=== PATIENT | female | born 1975 | race American Indian/Alaskan Native ===

== ENCOUNTER 2018-07-02 04:30 | Inpatient (IN) | payer MEDICARE ==
[2018-07-02] MEDS ORDERED: APRESOLINE IV ONE ×2 (05:06→06:13)
[2018-07-02] MEDS ORDERED: ZOFRAN IV ONE ×2 (05:07→06:12)
[2018-07-02 06:03] LABS: Hematocrit 29.5 % (30.3-42.9); Mean Corpuscular HGB Conc 34 % (30-34); Mean Corpuscular Hemoglobin 33 pg (28-32); Mean Corpuscular Volume 97 fl (79-97); Platelet Count 131 K/mm3 (140-440); Red Blood Count 3.03 M/mm3 (3.65-5.03)
[2018-07-02 06:12] LABS: Red Cell Distribution Width 21.9 % (13.2-15.2)
[2018-07-02] MEDS ORDERED: MORPHINE IV ONE (06:12)
--- NOTE | 2018-07-02 06:17 | Emergency Department Report ---
ED Abdominal Pain HPI - General Chief Complaint: High BP Stated Complaint: ABDOMINAL PAIN Time Seen by Provider: 07/02/18 06:09 Source: EMS Mode of arrival: Stretcher Limitations: No Limitations - History of Present Illness Initial Comments: Patient is 43 years old female history of hypertension and end stage renal disease on hemodialysis. Patient stated that he followed by Dr. Barajas at [facility]. Patient stated that she had dialysis yesterday and see finished dialysis session. Patient presented to the ER complaining of abdominal pain and diffuse in nature started yesterday associated with nausea and vomiting. Patient denied any fever or diarrhea. In triage patient was found to have a blood pressure of 256/144. MD Complaint: abdominal pain -: Last night Location: diffuse Radiation: none Migration to: no migration Quality: cramping Consistency: constant Worsens With: nothing - Related Data Previous Rx's Medication Instructions Recorded Last Taken Type Losartan [Cozaar] 100 mg PO QDAY #30 tablet 04/17/18 Unknown Rx Metoprolol [Lopressor TAB] 50 mg PO BID #60 tablet 04/17/18 Unknown Rx Midodrine [Proamatine] 5 mg PO SHARON PRN tablet 04/17/18 Unknown Rx NIFEdipine XL [Procardia Xl] 30 mg PO DAILY #30 tablet 04/17/18 Unknown Rx hydrALAZINE [Apresoline TAB] 50 mg PO Q8HR #90 tablet 04/17/18 Unknown Rx levETIRAcetam [Keppra TAB] 500 mg PO BID #60 tablet 04/17/18 Unknown Rx medroxyPROGESTERone ACETATE 10 mg PO QDAY #14 tablet 04/17/18 Unknown Rx [Provera] oxyCODONE /ACETAMINOPHEN [Percocet 1 tab PO Q6H PRN #10 tablet 04/17/18 Unknown Rx 5/325 mg] Allergies Allergy/AdvReac Type Severity Reaction Status Date / Time No Known Allergies Allergy Unverified 04/13/18 17:57 ED Review of Systems ROS: Stated complaint: ABDOMINAL PAIN Other details as noted in HPI Comment: All other systems reviewed and negative Constitutional: denies: chills, fever Respiratory: denies: cough, orthopnea, shortness of breath, SOB with exertion, wheezing Cardiovascular: denies: chest pain, palpitations, dyspnea on exertion Endocrine: denies: excessive sweating, flushing Gastrointestinal: abdominal pain, nausea, vomiting. denies: diarrhea, constipation, hematemesis, hematochezia Musculoskeletal: denies: back pain Neurological: denies: headache, weakness, numbness, paresthesias, confusion, abnormal gait ED Past Medical Hx - Past Medical History Previous Medical History?: Yes Hx Hypertension: Yes Hx Congestive Heart Failure: No Hx Diabetes: No Hx Renal Disease: Yes (ESRD/dialysis; MWF) Hx Sickle Cell Disease: No Hx Seizures: Yes Hx Asthma: No Hx COPD: No Hx Tuberculosis: No Hx Dementia: No Hx HIV: Yes (unknown last CD4 count) - Surgical History Past Surgical History?: Yes Additional Surgical History: Perma-Cath right chest - Social History Smoking Status: Unknown if ever smoked Substance Use Type: None - Medications Home Medications: Home Medications Medication Instructions Recorded Confirmed Last Taken Type Losartan [Cozaar] 100 mg PO QDAY #30 tablet 04/17/18 05/06/18 Unknown Rx Metoprolol [Lopressor TAB] 50 mg PO BID #60 tablet 04/17/18 05/06/18 Unknown Rx Midodrine [Proamatine] 5 mg PO SHARON PRN tablet 04/17/18 05/06/18 Unknown Rx NIFEdipine XL [Procardia Xl] 30 mg PO DAILY #30 tablet 04/17/18 05/06/18 Unknown Rx hydrALAZINE [Apresoline TAB] 50 mg PO Q8HR #90 tablet 04/17/18 05/06/18 Unknown Rx levETIRAcetam [Keppra TAB] 500 mg PO BID #60 tablet 04/17/18 05/06/18 Unknown Rx medroxyPROGESTERone ACETATE 10 mg PO QDAY #14 tablet 04/17/18 05/06/18 Unknown Rx [Provera] oxyCODONE /ACETAMINOPHEN [Percocet 1 tab PO Q6H PRN #10 tablet 04/17/18 Unknown Rx 5/325 mg] ED Physical Exam - General Limitations: No Limitations General appearance: alert, in distress - Head Head exam: Present: atraumatic, normocephalic, normal inspection - Eye Eye exam: Present: normal appearance, PERRL - ENT ENT exam: Present: normal exam, normal orophraynx, mucous membranes moist - Neck Neck exam: Present: normal inspection, full ROM. Absent: tenderness, meningismus, lymphadenopathy, thyromegaly - Respiratory Respiratory exam: Present: normal lung sounds bilaterally - Cardiovascular Cardiovascular Exam: Present: regular rate, normal rhythm, normal heart sounds - GI/Abdominal GI/Abdominal exam: Present: soft, normal bowel sounds. Absent: distended, tenderness, guarding, rebound, rigid, hypoactive bowel sounds, organomegaly, mass, bruit, pulsatile mass - Extremities Exam Extremities exam: Present: normal inspection, full ROM, normal capillary refill - Back Exam Back exam: Present: normal inspection, full ROM. Absent: tenderness, CVA tenderness (R), CVA tenderness (L), muscle spasm, paraspinal tenderness, vertebral tenderness - Neurological Exam Neurological exam: Present: alert, oriented X3, CN II-XII intact, normal gait, reflexes normal - Skin Skin exam: Present: warm, intact, normal color ED Course Vital Signs 07/02/18 07/02/18 07/02/18 04:45 04:59 05:00 Temperature 98.0 F Pulse Rate 78 75 Respiratory 20 14 Rate Blood Pressure 256/144 256/144 235/140 O2 Sat by Pulse 97 100 100 Oximetry 07/02/18 07/02/18 07/02/18 05:08 05:16 05:30 Temperature Pulse Rate 79 71 74 Respiratory 21 13 Rate Blood Pressure 252/149 O2 Sat by Pulse 94 99 Oximetry 07/02/18 07/02/18 07/02/18 05:48 06:00 06:16 Temperature Pulse Rate 75 76 78 Respiratory 16 15 Rate Blood Pressure 252/149 258/155 258/155 O2 Sat by Pulse 99 98 Oximetry 07/02/18 07/02/18 07/02/18 06:30 06:46 06:49 Temperature Pulse Rate 73 80 Respiratory 25 H 15 20 Rate Blood Pressure 255/147 255/147 O2 Sat by Pulse 95 92 100 Oximetry 07/02/18 07/02/18 07/02/18 07:00 07:16 07:30 Temperature Pulse Rate 72 71 72 Respiratory 17 15 15 Rate Blood Pressure 250/142 254/139 241/133 O2 Sat by Pulse 94 95 98 Oximetry 07/02/18 07/02/18 07/02/18 07:56 08:00 08:16 Temperature Pulse Rate 80 76 75 Respiratory 19 12 Rate Blood Pressure 233/136 241/133 241/133 O2 Sat by Pulse 93 92 91 Oximetry 07/02/18 07/02/18 08:30 08:46 Temperature Pulse Rate 81 95 H Respiratory 23 14 Rate Blood Pressure 248/147 248/147 O2 Sat by Pulse 89 97 Oximetry - Reevaluation(s) Reevaluation #1: 07/02/18 09:01 I discussed the patient is Dr. Wan, he stated that he'll follow up with the patient. ED Medical Decision Making - Lab Data Result diagrams: 07/02/18 05:30 07/02/18 05:30 - EKG Data -: EKG Interpreted by Me EKG shows normal: sinus rhythm Rate: normal - EKG Data Interpretation: no acute changes - Radiology Data Radiology results: report reviewed Referring Physician: JESSICA RAM Patient Name: KENDALL PRICE Date of : 1975 Sex: Female Report Date: 2018-07-02 Report Status: Finalized Findings [facility] [address] [place] [address] XRay Report Signed Patient: KENDALL PRICE MR#: [id number] : 1975 Acct:[id number] Age/Sex: 43 / F ADM Date: 07/02/18 Loc: ED Attending Dr: Ordering Physician: JESSICA RAM Date of Service: 07/02/18 Procedure(s): XR chest 1V ap Accession Number(s): [id number] cc: JESSICA RAM Fluoro Time In Minutes: FINAL REPORT EXAM: XR CHEST 1V AP HISTORY: ruq abd pain vomiting dialysis pt TECHNIQUE: A portable upright view the chest was obtained and compared to the study of 04/13/2018. FINDINGS: There is a double lumen venous catheter with the tip in the distal superior vena cava. The heart size is normal. The lungs are mildly congested. There are no localized infiltrates. The skeletal structures appear well maintained. IMPRESSION: Mild vascular congestion. No localized infiltrates. Transcribed By: RB Dictated By: ALONZO ANDREWS MD Electronically Authenticated By: ALONZO ANDREWS MD Signed Date/Time: 07/02/18640 DD/ 0 TD/TT: 07/02/18640 Referring Physician: JESSICA RAM Patient Name: KENDALL PRICE Date of : 1975 Sex: Female Report Date: 2018-07-02 Report Status: Finalized Findings [facility] [address] [place] [id number] Cat Scan Report Signed Patient: KENDALL PRICE MR#: [id number] : 1975 Acct:[id number] Age/Sex: 43 / F ADM Date: 07/02/18 Loc: ED Attending Dr: Ordering Physician: JESSICA RAM Date of Service: 07/02/18 Procedure(s): CT abdomen pelvis wo con Accession Number(s): [id number] cc: JESSICA RAM FINAL REPORT EXAM: CT ABDOMEN PELVIS WO CON HISTORY: ABDOMINAL PAIN TECHNIQUE: Routine axial imaging was obtained of the abdomen and pelvis without oral or IV contrast. Sagittal and coronal reconstructions were reviewed. FINDINGS: Imaging through the lung bases reveal generalized vascular congestion and interstitial edema. Pleural fluid is not seen. The study is limited without IV contrast. The liver, gallbladder, pancreas, spleen, and adrenal glands appear normal. The kidneys are atrophic. There is no evidence of hydronephrosis. There is a small amount of free fluid in the abdomen. There is a dialysis catheter coiled in the posterior aspect of the pelvis. The bowel loops are not distended. The entire appendix is not seen with certainty. In the pelvis the uterus and bladder appear normal. The skeletal structures reveal benign cystic changes in the right inferior pubic ramus and proximal right femur. Surrounding soft tissues reveal subcutaneous edema suggesting anasarca. IMPRESSION: Generalized pulmonary vascular congestion with interstitial edema seen the lung bases. Anasarca No definite acute process identified in the abdomen and pelvis The appendix is not seen with certainty. Free fluid the pelvis with dialysis catheter noted in the posterior aspect of the pelvis. Transcribed By: RB Dictated By: ALONZO ANDREWS MD Electronically Authenticated By: ALONZO ANDREWS MD Signed Date/Time: 07/02/18802 DD/ 2 TD/TT: 07/02/18802 - Medical Decision Making Patient is 43 years old female history of hypertension and end stage renal disease on hemodialysis. Patient stated that he followed by Dr. Barajas at [facility]. Patient stated that she had dialysis yesterday and see finished dialysis session. Patient presented to the ER complaining of abdominal pain and diffuse in nature started yesterday associated with nausea and vomiting. Patient denied any fever or diarrhea. In triage patient was found to have a blood pressure of 256/144. Patient stated that her pain is a little bit better than before. Patient blood pressure was not controlled by hydralazine. I started the patient on nicardipine drip. I believe patient would need an emergency dialysis. Patient' s CT abdomen and pelvis did not show anything acute. I discussed the patient with Dr. Suresh, advised to admit the patient to Dr. Sharp. Critical Care Time: Yes Critical care time in (mins) excluding proc time.: 45 Critical care attestation.: If time is entered above; I have spent that time in minutes in the direct care of this critically ill patient, excluding procedure time. ED Disposition Clinical Impression: End stage renal disease, Volume overload, Hypertensive emergency, Abdominal pain Disposition: OP ADMIT IP TO THIS HOSP Is pt being admited?: Yes Condition: Stable Instructions: Hypertension (ED) Referrals: PRIMARY CARE, [Primary Care Provider] - 3-5 Days
[2018-07-02 06:27] LABS: Albumin 3.7 g/dL (3.9-5)
--- NOTE | 2018-07-02 06:42 | XRay Report ---
FINAL REPORT EXAM: XR CHEST 1V AP HISTORY: ruq abd pain vomiting dialysis pt TECHNIQUE: A portable upright view the chest was obtained and compared to the study of 04/13/2018. FINDINGS: There is a double lumen venous catheter with the tip in the distal superior vena cava. The heart size is normal. The lungs are mildly congested. There are no localized infiltrates. The skeletal structures appear well maintained. IMPRESSION: Mild vascular congestion. No localized infiltrates.
[2018-07-02] MEDS ORDERED: SUBLIMAZE IV ONE (07:08)
[2018-07-02 07:10] LABS: Platelet Estimate Consistent w Auto; Total Cells Counted 100
[2018-07-02 07:11] LABS: Anisocytosis 1+
[2018-07-02] MEDS ORDERED: SUBLIMAZE ONE (07:13)
--- NOTE | 2018-07-02 08:05 | Cat Scan Report ---
FINAL REPORT EXAM: CT ABDOMEN PELVIS WO CON HISTORY: ABDOMINAL PAIN TECHNIQUE: Routine axial imaging was obtained of the abdomen and pelvis without oral or IV contrast. Sagittal and coronal reconstructions were reviewed. FINDINGS: Imaging through the lung bases reveal generalized vascular congestion and interstitial edema. Pleural fluid is not seen. The study is limited without IV contrast. The liver, gallbladder, pancreas, spleen, and adrenal glands appear normal. The kidneys are atrophic. There is no evidence of hydronephrosis. There is a small amount of free fluid in the abdomen. There is a dialysis catheter coiled in the posterior aspect of the pelvis. The bowel loops are not distended. The entire appendix is not seen with certainty. In the pelvis the uterus and bladder appear normal. The skeletal structures reveal benign cystic changes in the right inferior pubic ramus and proximal right femur. Surrounding soft tissues reveal subcutaneous edema suggesting anasarca. IMPRESSION: Generalized pulmonary vascular congestion with interstitial edema seen the lung bases. Anasarca No definite acute process identified in the abdomen and pelvis The appendix is not seen with certainty. Free fluid the pelvis with dialysis catheter noted in the posterior aspect of the pelvis.
[2018-07-02] MEDS ORDERED: REGLAN ONE (09:25)
[2018-07-02] MEDS ORDERED: DILAUDID ONE (09:29)
[2018-07-02] MEDS ORDERED: REGLAN IV ONE (09:33)
[2018-07-02] MEDS ORDERED: DILAUDID IV ONE (09:35)
[2018-07-02] MEDS: CARDENE 50 MG in NACL 0.9% 250ML 230 ML IV SCH ×3 (10:08→23:10)
--- NOTE | 2018-07-02 10:46 | History and Physical Report ---
History of Present Illness Date of admission: 07/02/18 09:04 Chief complaint: abdominal pain History of present illness: 43 year old woman with past medical history of end-stage renal disease. She usually uses hemodialysis. She states that her last hemodialysis was last week, she has now been put on peritoneal dialysis. She stated her last peritoneal dialysis was yesterday, and she completed it. Now she's complaining of abdominal pain. The pain is generalizing her abdomen, it is dull, it is 6 out of 10. The patient is compliant or her blood pressure medications and did not miss any doses. She denies fevers, denies chills. she's very concerned that she might have another infection, she states that she had blood infections in the past from her permacath, and blood clot related to the permacath in the past. However her complaints this time are in her belly. In the ER she was noted to have very elevated blood pressure And she was put on cardene drip. Past Medical History; htn, ESRD on HD, now converted to PD, HIV AIDS( CD4 count was 7 in April), Seizure disorder - Surgical History Perma-Cath right chest, PD cath placement - Family History Family history: no significant - Social History Smoking Status: Never Smoker Substance Use Type: None (denies illicit drug use) Medications and Allergies Allergies Allergy/AdvReac Type Severity Reaction Status Date / Time No Known Allergies Allergy Unverified 04/13/18 17:57 Home Medications Medication Instructions Recorded Confirmed Last Taken Type Losartan [Cozaar] 100 mg PO QDAY #30 tablet 04/17/18 07/03/18 07/03/18 10:00 Rx hydrALAZINE [Apresoline TAB] 50 mg PO Q8HR #90 tablet 04/17/18 07/03/18 Rx levETIRAcetam [Keppra TAB] 500 mg PO BID #60 tablet 04/17/18 07/03/18 07/03/18 Rx medroxyPROGESTERone ACETATE 10 mg PO QDAY #14 tablet 04/17/18 07/03/18 Unknown Rx [Provera] oxyCODONE /ACETAMINOPHEN [Percocet 1 tab PO Q6H PRN #10 tablet 04/17/18 Unknown Rx 5/325 mg] Procardia Xl 60 mg PO DAILY 07/03/18 07/03/18 07/03/18 History Active Meds: Active Medications Nicardipine HCl 50 mg/ Sodium (Chloride) 250 mls @ 25 mls/hr IV TITR ZAIRE; Protocol Last Admin: 07/02/18 10:08 Dose: 5 mg/hr, 25 mls/hr Review of Systems All systems: negative Constitutional: fatigue, weakness Ears, nose, mouth and throat: no tinnitis Cardiovascular: no chest pain Respiratory: no cough Gastrointestinal: abdominal pain, no nausea Musculoskeletal: no neck pain Neurological: no head injury Psychiatric: no anxiety Endocrine: no cold intolerance Hematologic/Lymphatic: no easy bruising Allergic/Immunologic: no urticaria Exam - Constitutional Vitals: Temp Pulse Resp BP Pulse Ox 98.0 F 81 16 218/117 95 07/02/18 04:59 07/02/18 10:30 07/02/18 10:30 07/02/18 10:30 07/02/18 10:30 General appearance: Present: no acute distress, well-nourished - EENT Eyes: Present: PERRL ENT: hearing intact, clear oral mucosa - Neck Neck: Present: supple, normal ROM - Respiratory Respiratory effort: normal Respiratory: bilateral: CTA - Cardiovascular Heart Sounds: Present: S1 & S2. Absent: rub, click - Extremities Extremities: pulses symmetrical, No edema Peripheral Pulses: within normal limits - Abdominal General gastrointestinal: Present: soft, non-tender, non-distended, normal bowel sounds Female genitourinary: Present: normal - Integumentary Integumentary: Present: clear, warm, dry - Musculoskeletal Musculoskeletal: gait normal, strength equal bilaterally - Psychiatric Psychiatric: appropriate mood/affect, intact judgment & insight - Neurologic Neurologic: CNII-XII intact, moves all extremities Results - Labs CBC & Chem 7: 07/02/18 05:30 07/02/18 05:30 Labs: Laboratory Last Values WBC 6.0 K/mm3 (4.5-11.0) 07/02/18 05:30 RBC 3.03 M/mm3 (3.65-5.03) L 07/02/18 05:30 Hgb 10.0 gm/dl (10.1-14.3) L 07/02/18 05:30 Hct 29.5 % (30.3-42.9) L 07/02/18 05:30 MCV 97 fl (79-97) 07/02/18 05:30 MCH 33 pg (28-32) H 07/02/18 05:30 MCHC 34 % (30-34) 07/02/18 05:30 RDW 21.9 % (13.2-15.2) H 07/02/18 05:30 Plt Count 131 K/mm3 (140-440) L 07/02/18 05:30 Add Manual Diff Complete 07/02/18 05:30 Total Counted 100 07/02/18 05:30 Seg Neuts % (Manual) 73.0 % (40.0-70.0) H 07/02/18 05:30 Band Neutrophils % 0 % 07/02/18 05:30 Lymphocytes % (Manual) 8.0 % (13.4-35.0) L 07/02/18 05:30 Reactive Lymphs % (Man) 0 % 07/02/18 05:30 Monocytes % (Manual) 8.0 % (0.0-7.3) H 07/02/18 05:30 Eosinophils % (Manual) 10.0 % (0.0-4.3) H 07/02/18 05:30 Basophils % (Manual) 1.0 % (0.0-1.8) 07/02/18 05:30 Metamyelocytes % 0 % 07/02/18 05:30 Myelocytes % 0 % 07/02/18 05:30 Promyelocytes % 0 % 07/02/18 05:30 Blast Cells % 0 % 07/02/18 05:30 Nucleated RBC % Not Reportable 07/02/18 05:30 Seg Neutrophils # Man 4.4 K/mm3 (1.8-7.7) 07/02/18 05:30 Band Neutrophils # 0.0 K/mm3 07/02/18 05:30 Lymphocytes # (Manual) 0.5 K/mm3 (1.2-5.4) L 07/02/18 05:30 Abs React Lymphs (Man) 0.0 K/mm3 07/02/18 05:30 Monocytes # (Manual) 0.5 K/mm3 (0.0-0.8) 07/02/18 05:30 Eosinophils # (Manual) 0.6 K/mm3 (0.0-0.4) H 07/02/18 05:30 Basophils # (Manual) 0.1 K/mm3 (0.0-0.1) 07/02/18 05:30 Metamyelocytes # 0.0 K/mm3 07/02/18 05:30 Myelocytes # 0.0 K/mm3 07/02/18 05:30 Promyelocytes # 0.0 K/mm3 07/02/18 05:30 Blast Cells # 0.0 K/mm3 07/02/18 05:30 WBC Morphology Not Reportable 07/02/18 05:30 Hypersegmented Neuts Not Reportable 07/02/18 05:30 Hyposegmented Neuts Not Reportable 07/02/18 05:30 Hypogranular Neuts Not Reportable 07/02/18 05:30 Smudge Cells Not Reportable 07/02/18 05:30 Toxic Granulation Not Reportable 07/02/18 05:30 Toxic Vacuolation Not Reportable 07/02/18 05:30 Dohle Bodies Not Reportable 07/02/18 05:30 Pelger-Huet Anomaly Not Reportable 07/02/18 05:30 Luis Rods Not Reportable 07/02/18 05:30 Platelet Estimate Consistent w auto 07/02/18 05:30 Clumped Platelets Not Reportable 07/02/18 05:30 Plt Clumps, EDTA Not Reportable 07/02/18 05:30 Large Platelets Not Reportable 07/02/18 05:30 Giant Platelets Not Reportable 07/02/18 05:30 Platelet Satelliting Not Reportable 07/02/18 05:30 Plt Morphology Comment Not Reportable 07/02/18 05:30 RBC Morphology Not Reportable 07/02/18 05:30 Dimorphic RBCs Not Reportable 07/02/18 05:30 Polychromasia Not Reportable 07/02/18 05:30 Hypochromasia Not Reportable 07/02/18 05:30 Poikilocytosis Not Reportable 07/02/18 05:30 Anisocytosis 1+ 07/02/18 05:30 Microcytosis 1+ 07/02/18 05:30 Macrocytosis Not Reportable 07/02/18 05:30 Spherocytes Not Reportable 07/02/18 05:30 Pappenheimer Bodies Not Reportable 07/02/18 05:30 Sickle Cells Not Reportable 07/02/18 05:30 Target Cells Not Reportable 07/02/18 05:30 Tear Drop Cells Not Reportable 07/02/18 05:30 Ovalocytes Not Reportable 07/02/18 05:30 Helmet Cells Not Reportable 07/02/18 05:30 [place] Bodies Not Reportable 07/02/18 05:30 [place] Rings Not Reportable 07/02/18 05:30 Lorenza Cells Not Reportable 07/02/18 05:30 Bite Cells Not Reportable 07/02/18 05:30 Crenated Cell Not Reportable 07/02/18 05:30 Elliptocytes Not Reportable 07/02/18 05:30 Acanthocytes (Spur) Not Reportable 07/02/18 05:30 Rouleaux Not Reportable 07/02/18 05:30 Hemoglobin C Crystals Not Reportable 07/02/18 05:30 Schistocytes Not Reportable 07/02/18 05:30 Malaria parasites Not Reportable 07/02/18 05:30 Marco Antonio Bodies Not Reportable 07/02/18 05:30 Hem Pathologist Commnt No 07/02/18 05:30 Sodium 136 mmol/L (137-145) L 07/02/18 05:30 Potassium 3.7 mmol/L (3.6-5.0) 07/02/18 05:30 Chloride 92.0 mmol/L (98-107) L 07/02/18 05:30 Carbon Dioxide 27 mmol/L (22-30) 07/02/18 05:30 Anion Gap 21 mmol/L 07/02/18 05:30 BUN 36 mg/dL (7-17) H 07/02/18 05:30 Creatinine 11.7 mg/dL (0.7-1.2) H 07/02/18 05:30 Estimated GFR 4 ml/min 07/02/18 05:30 BUN/Creatinine Ratio 3 % 07/02/18 05:30 Glucose 102 mg/dL (65-100) H 07/02/18 05:30 Calcium 9.0 mg/dL (8.4-10.2) 07/02/18 05:30 Total Bilirubin 0.50 mg/dL (0.1-1.2) 07/02/18 05:30 AST 17 units/L (5-40) 07/02/18 05:30 ALT 7 units/L (7-56) 07/02/18 05:30 Alkaline Phosphatase 92 units/L (35-129) 07/02/18 05:30 Troponin T 0.015 ng/mL (0.00-0.029) 07/02/18 05:30 Total Protein 7.4 g/dL (6.3-8.2) 07/02/18 05:30 Albumin 3.7 g/dL (3.9-5) L 07/02/18 05:30 Albumin/Globulin Ratio 1.0 % 07/02/18 05:30 Lipase 149 units/L (13-60) H 07/02/18 05:30 Assessment and Plan Assessment and plan: 43F who was recently started on PD who pw abdominal pain and elevated BP abdominal pain Abdominal pain CT Abdomen wnl -send peritoneal fluid for cell count and culture to rule out SBP - clinically has no signs of infection, abdo pain might be discomfort from PD itself. - on empiric abx for now Htn emergency cont cardene drip, resume home meds ESRD, had PD yesterday, consult renal for scheduled [employer] MA[employer]GER HIV/AIDS will cont retrovirals, awaiting her sister to bring her full list of meds CCT 33 minutes Plan of care discussed with patient/family: Yes
[2018-07-02] MEDS ORDERED: PERCOCET 5/325 PO PRN (10:49)
[2018-07-02] MEDS ORDERED: ZOFRAN IV PRN (11:56)
[2018-07-02] MEDS: PROCARDIA XL PO SCH (12:50)
[2018-07-02] MEDS: COZAAR PO SCH (12:50)
[2018-07-02] MEDS: DILAUDID IV PRN ×3 (12:51→21:02)
[2018-07-02] MEDS ORDERED: NACL 0.9% 100 ML IV PRN (12:51)
--- NOTE | 2018-07-02 12:51 | Consultation ---
History of Present Illness - Reason for Consult Consult date: 07/02/18 end stage renal disease, accelerated hypertension Requesting physician: JESSICA RAM - History of Present Illness Patient is 43 years old female history of hypertension and end stage renal disease on hemodialysis. Patient stated that he followed by Dr. Barajas at [place]. Patient stated that she had dialysis yesterday and see finished dialysis session. Patient presented to the ER complaining of abdominal pain and diffuse in nature started yesterday associated with nausea and vomiting. Patient denied any fever or diarrhea. In triage patient was found to have a blood pressure of 256/144. MD Complaint: abdominal pain -: Last night Location: diffuse Radiation: none Migration to: no migration Quality: cramping Consistency: constant Worsens With: nothing ROS: Stated complaint: ABDOMINAL PAIN Other details as noted in HPI Comment: All other systems reviewed and negative Constitutional: denies: chills, fever Respiratory: denies: cough, orthopnea, shortness of breath, SOB with exertion, wheezing Cardiovascular: denies: chest pain, palpitations, dyspnea on exertion Endocrine: denies: excessive sweating, flushing Gastrointestinal: abdominal pain, nausea, vomiting. denies: diarrhea, constipation, hematemesis, hematochezia Musculoskeletal: denies: back pain Neurological: denies: headache, weakness, numbness, paresthesias, confusion, abnormal gait Past Medical History Previous Medical History?: Yes Hx Hypertension: Yes Hx Congestive Heart Failure: No Hx Diabetes: No Hx Renal Disease: Yes (ESRD/dialysis; MWF) Hx Sickle Cell Disease: No Hx Seizures: Yes Hx Asthma: No Hx COPD: No Hx Tuberculosis: No Hx Dementia: No Hx HIV: Yes (unknown last CD4 count) - Surgical History Past Surgical History?: Yes Additional Surgical History: Perma-Cath right chest - Social History Smoking Status: Unknown if ever smoked Substance Use Type: None Medications and Allergies Allergies Allergy/AdvReac Type Severity Reaction Status Date / Time No Known Allergies Allergy Unverified 04/13/18 17:57 Home Medications Medication Instructions Recorded Confirmed Last Taken Type Losartan [Cozaar] 100 mg PO QDAY #30 tablet 04/17/18 05/06/18 Unknown Rx Metoprolol [Lopressor TAB] 50 mg PO BID #60 tablet 04/17/18 05/06/18 Unknown Rx Midodrine [Proamatine] 5 mg PO SHARON PRN tablet 04/17/18 05/06/18 Unknown Rx NIFEdipine XL [Procardia Xl] 30 mg PO DAILY #30 tablet 04/17/18 05/06/18 Unknown Rx hydrALAZINE [Apresoline TAB] 50 mg PO Q8HR #90 tablet 04/17/18 05/06/18 Unknown Rx levETIRAcetam [Keppra TAB] 500 mg PO BID #60 tablet 04/17/18 05/06/18 Unknown Rx medroxyPROGESTERone ACETATE 10 mg PO QDAY #14 tablet 04/17/18 05/06/18 Unknown Rx [Provera] oxyCODONE /ACETAMINOPHEN [Percocet 1 tab PO Q6H PRN #10 tablet 04/17/18 Unknown Rx 5/325 mg] Active Meds: Active Medications Hydralazine HCl (Apresoline) 50 mg PO Q8HR [facility]RE Hydromorphone HCl (Dilaudid) 1 mg IV Q3H PRN PRN Reason: Pain , Severe (7-10) Nicardipine HCl 50 mg/ Sodium (Chloride) 250 mls @ 25 mls/hr IV TITR ZAIRE; Protocol Last Admin: 07/02/18 10:08 Dose: 5 mg/hr, 25 mls/hr Levetiracetam (Keppra) 500 mg PO BID ZAIRE Losartan Potassium (Cozaar) 100 mg PO QDAY [facility]AIRE Metoprolol Tartrate (Lopressor) 50 mg PO BID ZAIRE Nifedipine (Procardia Xl) 30 mg PO DAILY [facility] Ondansetron HCl (Zofran) 4 mg IV Q8H PRN PRN Reason: Nausea And Vomiting Exam - Vital Signs Vital signs: Vital Signs BP Pulse Ox 256/144 97 07/02/18 04:45 07/02/18 04:45 - Physical Exam Narrative exam: - General Limitations: No Limitations General appearance: alert, in distress - Head Head exam: Present: atraumatic, normocephalic, normal inspection - Eye Eye exam: Present: normal appearance, PERRL - ENT ENT exam: Present: normal exam, normal orophraynx, mucous membranes moist - Neck Neck exam: Present: normal inspection, full ROM. Absent: tenderness, meningismus, lymphadenopathy, thyromegaly - Respiratory Respiratory exam: Present: normal lung sounds bilaterally - Cardiovascular Cardiovascular Exam: Present: regular rate, normal rhythm, normal heart sounds - GI/Abdominal GI/Abdominal exam: Present: soft, normal bowel sounds. Absent: distended, tenderness, guarding, rebound, rigid, hypoactive bowel sounds, organomegaly, mass, bruit, pulsatile mass - Extremities Exam Extremities exam: Present: normal inspection, full ROM, normal capillary refill - Back Exam Back exam: Present: normal inspection, full ROM. Absent: tenderness, CVA tenderness (R), CVA tenderness (L), muscle spasm, paraspinal tenderness, vertebral tenderness - Neurological Exam Neurological exam: Present: alert, oriented X3, CN II-XII intact, normal gait, reflexes normal - Skin Skin exam: Present: warm, intact, normal color Results - Lab Results 07/02/18 05:30 07/02/18 05:30 Most recent lab results Calcium 9.0 mg/dL (8.4-10.2) 07/02/18 05:30 Assessment and Plan Impression: * ESRD * HTN urgency * ANemia in esrd * volume overload * abdominal pain Plan: * hd today and prn as needed * uf as tolerated with hd, attempt today to control bp * strict i/os, avoid nephrotoxins * daily lytes
[2018-07-02] MEDS: LOPRESSOR PO SCH ×2 (13:01→21:11)
[2018-07-02] MEDS: APRESOLINE PO SCH ×2 (14:55→21:11)
--- NOTE | 2018-07-02 18:02 | Consultation ---
History of Present Illness - Reason for Consult Consult date: 07/02/18 Hypertensive Emergency Requesting physician: JD NORTON - History of Present Illness 43 y/o female with ESRD on HD, HTN, HIV admitted with hypertensive emergency to ICU. Initial complaint in the ED was abdominal pain with [place] [facility] catheter that appears to have been placed at [place]. Patient received several pain meds in the ED including morphine, dilaudid and fentanyl. She has chronic pain as she is on percocets at home. Remainder is unobtainable right now secondary to mental state likely from medications. Past History Past Medical History: ESRD, hypertension, seizures, other (chronic pain, HIV) Medications and Allergies Allergies Allergy/AdvReac Type Severity Reaction Status Date / Time No Known Allergies Allergy Unverified 04/13/18 17:57 Home Medications Medication Instructions Recorded Confirmed Last Taken Type Losartan [Cozaar] 100 mg PO QDAY #30 tablet 04/17/18 05/06/18 Unknown Rx Metoprolol [Lopressor TAB] 50 mg PO BID #60 tablet 04/17/18 05/06/18 Unknown Rx Midodrine [Proamatine] 5 mg PO SHARON PRN tablet 04/17/18 05/06/18 Unknown Rx NIFEdipine XL [Procardia Xl] 30 mg PO DAILY #30 tablet 04/17/18 05/06/18 Unknown Rx hydrALAZINE [Apresoline TAB] 50 mg PO Q8HR #90 tablet 04/17/18 05/06/18 Unknown Rx levETIRAcetam [Keppra TAB] 500 mg PO BID #60 tablet 04/17/18 05/06/18 Unknown Rx medroxyPROGESTERone ACETATE 10 mg PO QDAY #14 tablet 04/17/18 05/06/18 Unknown Rx [Provera] oxyCODONE /ACETAMINOPHEN [Percocet 1 tab PO Q6H PRN #10 tablet 04/17/18 Unknown Rx 5/325 mg] Active Meds: Active Medications Hydralazine HCl (Apresoline) 50 mg PO Q8HR ZAIRE Last Admin: 07/02/18 14:55 Dose: 50 mg Hydromorphone HCl (Dilaudid) 1 mg IV Q3H PRN PRN Reason: Pain , Severe (7-10) Last Admin: 07/02/18 12:51 Dose: 1 mg Nicardipine HCl 50 mg/ Sodium (Chloride) 250 mls @ 25 mls/hr IV TITR [facility]; Protocol Last Titration: 07/02/18 17:00 Dose: 7.5 mg/hr, 37.5 mls/hr Sodium Chloride (Nacl 0.9%) 100 mls @ 999 mls/hr IV SHARON PRN PRN Reason: Hypotension Lactulose (Cephulac) 20 gm PO QDAY [facility] Levetiracetam (Keppra) 500 mg PO BID [facility] Losartan Potassium (Cozaar) 100 mg PO QDAY [facility] Last Admin: 07/02/18 12:50 Dose: 100 mg Metoprolol Tartrate (Lopressor) 50 mg PO BID [facility] Last Admin: 07/02/18 13:01 Dose: 50 mg Nifedipine (Procardia Xl) 30 mg PO DAILY [facility] Last Admin: 07/02/18 12:50 Dose: 30 mg Ondansetron HCl (Zofran) 4 mg IV Q8H PRN PRN Reason: Nausea And Vomiting Review of Systems ROS unobtainable: due to mental status Exam - Constitutional Vitals: Temp Pulse Resp BP Pulse Ox 98.8 F 69 17 132/74 98 07/02/18 16:55 07/02/18 17:30 07/02/18 16:55 07/02/18 17:30 07/02/18 15:30 Results - Labs CBC & Chem 7: 07/02/18 05:30 07/02/18 05:30 Labs: Abnormal lab results 07/02/18 07/02/18 Range/Units 05:30 05:30 RBC 3.03 L (3.65-5.03) M/mm3 Hgb 10.0 L (10.1-14.3) gm/dl Hct 29.5 L (30.3-42.9) % MCH 33 H (28-32) pg RDW 21.9 H (13.2-15.2) % Plt Count 131 L (140-440) K/mm3 Seg Neuts % (Manual) 73.0 H (40.0-70.0) % Lymphocytes % (Manual) 8.0 L (13.4-35.0) % Monocytes % (Manual) 8.0 H (0.0-7.3) % Eosinophils % (Manual) 10.0 H (0.0-4.3) % Lymphocytes # (Manual) 0.5 L (1.2-5.4) K/mm3 Eosinophils # (Manual) 0.6 H (0.0-0.4) K/mm3 Sodium 136 L (137-145) mmol/L Chloride 92.0 L (98-107) mmol/L BUN 36 H (7-17) mg/dL Creatinine 11.7 H (0.7-1.2) mg/dL Glucose 102 H (65-100) mg/dL Albumin 3.7 L (3.9-5) g/dL Lipase 149 H (13-60) units/L - Imaging and Cardiology Chest x-ray: image reviewed Assessment and Plan 43 y/o female with abdominal pain and hypertensive Emergency 1. Continue cardene drip with goal to lower BP by about 20%. Will shoot for systolics in the 180, and diastolics in the 90's. 2. Restart home medication once confirmed 3. Will only use one pain medication, dilaudid 1mg q3 as needed 4. Can feed patient if she wakes up and wants food 5. Follow up renal recs in regards to HD, given pain with HD, question if need to culture PD fluid CCT 31
[2018-07-02] MEDS ORDERED: NACL 0.9% 500 ML 500 ML ONE (20:36)
[2018-07-02] MEDS: CEPHULAC PO SCH (20:59)
[2018-07-02] MEDS: KEPPRA PO SCH (21:12)
[2018-07-03] MEDS: DILAUDID IV PRN ×6 (00:10→22:02)
[2018-07-03 02:34] LABS: Total Cells Counted 100 /mm3
[2018-07-03] MEDS: APRESOLINE PO SCH ×3 (05:15→22:00)
[2018-07-03] MEDS: CARDENE 50 MG in NACL 0.9% 250ML 230 ML IV SCH (07:30)
[2018-07-03] MEDS: LOPRESSOR PO SCH ×2 (09:13→22:01)
[2018-07-03] MEDS: CEPHULAC PO SCH (09:13)
[2018-07-03] MEDS: KEPPRA PO SCH ×2 (09:13→22:01)
[2018-07-03] MEDS: COZAAR PO SCH (09:13)
[2018-07-03] MEDS: PROCARDIA XL PO SCH (09:13)
--- NOTE | 2018-07-03 09:33 | Progress Note ---
Assessment and Plan Impression: * ESRD * HTN urgency * peritonitis * ANemia in esrd * volume overload * abdominal pain Plan: * hd QMWF and prn * iv abx for peritonitis * needs to continue hemodialysis for now * follow up on pd fluid cultures * uf as tolerated with hd, attempt today to control bp * strict i/os, avoid nephrotoxins * daily lytes Subjective Date of service: 07/03/18 Principal diagnosis: esrd, abdominal pain, peritonitis Interval history: resting well in bed today Objective - Exam Narrative Exam: - General Limitations: No Limitations General appearance: alert, in distress - Head Head exam: Present: atraumatic, normocephalic, normal inspection - Eye Eye exam: Present: normal appearance, PERRL - ENT ENT exam: Present: normal exam, normal orophraynx, mucous membranes moist - Neck Neck exam: Present: normal inspection, full ROM. Absent: tenderness, meningismus, lymphadenopathy, thyromegaly - Respiratory Respiratory exam: Present: normal lung sounds bilaterally - Cardiovascular Cardiovascular Exam: Present: regular rate, normal rhythm, normal heart sounds - GI/Abdominal GI/Abdominal exam: Present: soft, normal bowel sounds. Absent: distended, tenderness, guarding, rebound, rigid, hypoactive bowel sounds, organomegaly, mass, bruit, pulsatile mass - Extremities Exam Extremities exam: Present: normal inspection, full ROM, normal capillary refill - Back Exam Back exam: Present: normal inspection, full ROM. Absent: tenderness, CVA tenderness (R), CVA tenderness (L), muscle spasm, paraspinal tenderness, vertebral tenderness - Neurological Exam Neurological exam: Present: alert, oriented X3, CN II-XII intact, normal gait, reflexes normal - Skin Skin exam: Present: warm, intact, normal color - Vital Signs Vital signs: Vital Signs - 12hr 07/02/18 07/02/18 07/02/18 21:45 22:00 22:15 Temperature Pulse Rate 80 76 79 Pulse Rate [ From Monitor] Respiratory 14 11 L 12 Rate Blood Pressure 162/91 150/85 162/80 O2 Sat by Pulse 98 99 98 Oximetry 07/02/18 07/02/18 07/02/18 22:30 22:45 23:00 Temperature Pulse Rate 80 81 79 Pulse Rate [ From Monitor] Respiratory 14 13 12 Rate Blood Pressure 162/80 155/87 155/87 O2 Sat by Pulse 98 99 99 Oximetry 07/02/18 07/02/18 07/02/18 23:15 23:30 23:45 Temperature Pulse Rate 79 80 79 Pulse Rate [ From Monitor] Respiratory 16 13 17 Rate Blood Pressure 152/85 152/87 166/86 O2 Sat by Pulse 98 98 96 Oximetry 07/03/18 07/03/18 07/03/18 00:00 00:15 00:19 Temperature 98.5 F Pulse Rate 79 81 80 Pulse Rate [ 80 From Monitor] Respiratory 14 10 L 17 Rate Blood Pressure 158/88 144/87 144/87 O2 Sat by Pulse 99 98 96 Oximetry 07/03/18 07/03/18 07/03/18 00:30 00:45 01:00 Temperature Pulse Rate 80 80 81 Pulse Rate [ From Monitor] Respiratory 13 10 L 11 L Rate Blood Pressure 141/87 141/86 141/86 O2 Sat by Pulse 98 98 97 Oximetry 07/03/18 07/03/18 07/03/18 01:15 01:30 01:45 Temperature Pulse Rate 81 80 79 Pulse Rate [ From Monitor] Respiratory 12 13 11 L Rate Blood Pressure 164/100 164/100 165/94 O2 Sat by Pulse 98 96 100 Oximetry 07/03/18 07/03/18 07/03/18 02:00 02:15 02:30 Temperature Pulse Rate 80 80 81 Pulse Rate [ From Monitor] Respiratory 12 12 15 Rate Blood Pressure 174/102 182/102 202/106 O2 Sat by Pulse 100 99 96 Oximetry 07/03/18 07/03/18 07/03/18 02:45 03:00 03:15 Temperature Pulse Rate 85 82 81 Pulse Rate [ From Monitor] Respiratory 18 14 12 Rate Blood Pressure 185/98 187/105 194/97 O2 Sat by Pulse 90 100 97 Oximetry 07/03/18 07/03/18 07/03/18 03:30 03:45 04:00 Temperature 98.6 F Pulse Rate 82 84 86 Pulse Rate [ 87 From Monitor] Respiratory 13 11 L 13 Rate Blood Pressure 159/92 166/89 166/89 O2 Sat by Pulse 99 99 98 Oximetry 07/03/18 07/03/18 07/03/18 04:15 04:30 04:45 Temperature Pulse Rate 87 88 89 Pulse Rate [ From Monitor] Respiratory 15 14 11 L Rate Blood Pressure 167/91 156/89 157/90 O2 Sat by Pulse 99 99 97 Oximetry 07/03/18 07/03/18 07/03/18 05:00 05:15 05:30 Temperature Pulse Rate 89 89 87 Pulse Rate [ From Monitor] Respiratory 13 16 12 Rate Blood Pressure 156/88 145/85 136/87 O2 Sat by Pulse 98 96 98 Oximetry 07/03/18 07/03/18 07/03/18 05:45 06:00 06:15 Temperature Pulse Rate 86 87 87 Pulse Rate [ From Monitor] Respiratory 22 16 15 Rate Blood Pressure 139/89 139/89 149/89 O2 Sat by Pulse 95 98 98 Oximetry 07/03/18 07/03/18 07/03/18 06:30 06:45 07:00 Temperature Pulse Rate 85 85 85 Pulse Rate [ From Monitor] Respiratory 17 17 16 Rate Blood Pressure 152/85 142/91 153/88 O2 Sat by Pulse 98 98 99 Oximetry 07/03/18 07/03/18 07/03/18 08:00 08:36 09:13 Temperature Pulse Rate 97 H Pulse Rate [ 90 From Monitor] Respiratory 19 Rate Blood Pressure 161/96 O2 Sat by Pulse 97 97 Oximetry 07/03/18 09:14 Temperature Pulse Rate Pulse Rate [ From Monitor] Respiratory 15 Rate Blood Pressure O2 Sat by Pulse Oximetry - Lab 07/02/18 05:30 07/02/18 05:30 Most recent lab results Calcium 9.0 mg/dL (8.4-10.2) 07/02/18 05:30
[2018-07-03] MEDS ORDERED: PROCARDIA XL PO ONE (11:00)
[2018-07-03] MEDS ORDERED: LEVAQUIN 250MG/50ML 250 MG/50 ML BAG IV SCH (11:00)
--- NOTE | 2018-07-03 11:38 | Progress Note ---
Assessment and Plan 43 y/o female with abdominal pain and hypertensive Emergency 1. Increase nicardipine to 60 daily, give an additional 30 for this morning and attempt to turn off Cardene 2. Systolics in the 160-180 range is acceptable given her level of hypertension on admission 3. HD per renal 4. Pain control per IMS 5. If able to stay off cardene, should be stable for transfer to floor CCt 31 Subjective Date of service: 07/03/18 Principal diagnosis: esrd, abdominal pain, peritonitis Interval history: BP and mental state much improved today. Still with abdominal pain. Culture from PD catheter so far is negative. Objective - Constitutional Vitals: Vital Signs - 12hr 07/02/18 07/03/18 07/03/18 23:45 00:00 00:15 Temperature 98.5 F Pulse Rate 79 79 81 Pulse Rate [ 80 From Monitor] Respiratory 17 14 10 L Rate Blood Pressure 166/86 158/88 144/87 O2 Sat by Pulse 96 99 98 Oximetry 07/03/18 07/03/18 07/03/18 00:19 00:30 00:45 Temperature Pulse Rate 80 80 80 Pulse Rate [ From Monitor] Respiratory 17 13 10 L Rate Blood Pressure 144/87 141/87 141/86 O2 Sat by Pulse 96 98 98 Oximetry 07/03/18 07/03/18 07/03/18 01:00 01:15 01:30 Temperature Pulse Rate 81 81 80 Pulse Rate [ From Monitor] Respiratory 11 L 12 13 Rate Blood Pressure 141/86 164/100 164/100 O2 Sat by Pulse 97 98 96 Oximetry 07/03/18 07/03/18 07/03/18 01:45 02:00 02:15 Temperature Pulse Rate 79 80 80 Pulse Rate [ From Monitor] Respiratory 11 L 12 12 Rate Blood Pressure 165/94 174/102 182/102 O2 Sat by Pulse 100 100 99 Oximetry 07/03/18 07/03/18 07/03/18 02:30 02:45 03:00 Temperature Pulse Rate 81 85 82 Pulse Rate [ From Monitor] Respiratory 15 18 14 Rate Blood Pressure 202/106 185/98 187/105 O2 Sat by Pulse 96 90 100 Oximetry 07/03/18 07/03/18 07/03/18 03:15 03:30 03:45 Temperature Pulse Rate 81 82 84 Pulse Rate [ From Monitor] Respiratory 12 13 11 L Rate Blood Pressure 194/97 159/92 166/89 O2 Sat by Pulse 97 99 99 Oximetry 07/03/18 07/03/18 07/03/18 04:00 04:15 04:30 Temperature 98.6 F Pulse Rate 86 87 88 Pulse Rate [ 87 From Monitor] Respiratory 13 15 14 Rate Blood Pressure 166/89 167/91 156/89 O2 Sat by Pulse 98 99 99 Oximetry 07/03/18 07/03/18 07/03/18 04:45 05:00 05:15 Temperature Pulse Rate 89 89 89 Pulse Rate [ From Monitor] Respiratory 11 L 13 16 Rate Blood Pressure 157/90 156/88 145/85 O2 Sat by Pulse 97 98 96 Oximetry 07/03/18 07/03/18 07/03/18 05:30 05:45 06:00 Temperature Pulse Rate 87 86 87 Pulse Rate [ From Monitor] Respiratory 12 22 16 Rate Blood Pressure 136/87 139/89 139/89 O2 Sat by Pulse 98 95 98 Oximetry 07/03/18 07/03/18 07/03/18 06:15 06:30 06:45 Temperature Pulse Rate 87 85 85 Pulse Rate [ From Monitor] Respiratory 15 17 17 Rate Blood Pressure 149/89 152/85 142/91 O2 Sat by Pulse 98 98 98 Oximetry 07/03/18 07/03/18 07/03/18 07:00 07:16 07:30 Temperature Pulse Rate 85 87 87 Pulse Rate [ From Monitor] Respiratory 16 11 L 14 Rate Blood Pressure 153/88 156/92 163/86 O2 Sat by Pulse 99 98 99 Oximetry 07/03/18 07/03/18 07/03/18 07:45 08:00 08:15 Temperature Pulse Rate 89 90 92 H Pulse Rate [ 90 From Monitor] Respiratory 14 19 16 Rate Blood Pressure 161/92 149/90 154/90 O2 Sat by Pulse 97 98 98 Oximetry 07/03/18 07/03/18 07/03/18 08:30 08:36 08:45 Temperature Pulse Rate 92 H 96 H Pulse Rate [ From Monitor] Respiratory 12 14 Rate Blood Pressure 154/92 162/95 O2 Sat by Pulse 98 97 98 Oximetry 07/03/18 07/03/18 07/03/18 09:00 09:13 09:14 Temperature Pulse Rate 95 H 97 H Pulse Rate [ From Monitor] Respiratory 15 15 Rate Blood Pressure 162/95 161/96 O2 Sat by Pulse 96 Oximetry 07/03/18 07/03/18 07/03/18 09:15 09:30 09:44 Temperature Pulse Rate 96 H 93 H Pulse Rate [ From Monitor] Respiratory 15 14 12 Rate Blood Pressure 166/91 167/86 O2 Sat by Pulse 99 97 Oximetry 07/03/18 07/03/18 09:45 10:00 Temperature Pulse Rate 92 H 92 H Pulse Rate [ From Monitor] Respiratory 10 L 11 L Rate Blood Pressure 143/87 143/87 O2 Sat by Pulse 99 98 Oximetry - Labs CBC & Chem 7: 07/02/18 05:30 07/02/18 05:30
[2018-07-03] MEDS: COLACE PO SCH ×2 (11:44→22:00)
--- NOTE | 2018-07-03 12:38 | Progress Note ---
Assessment and Plan Assessment and plan: Patient is a 43 yo woman with a history of HIV, ESRD on hemodialysis MWF, AOCD and s/p Right quadrant PD catheter placement (about 3 weeks ago at [facility]), Seizure disorders, hypertension and Gastroparesis with chronic narcotic pain syndrome who presents with N/V and abdominal pains. She was found to have bp of 256/144. She was started on Cardene drip and admitted to ICU. * CT abd/pelvis without contrast FINDINGS: Imaging through the lung bases reveal generalized vascular congestion and interstitial edema. Pleural fluid is not seen. The study is limited without IV contrast. The liver, gallbladder, pancreas, spleen, and adrenal glands appear normal. The kidneys are atrophic. There is no evidence of hydronephrosis. There is a small amount of free fluid in the abdomen. There is a dialysis catheter coiled in the posterior aspect of the pelvis. The bowel loops are not distended. The entire appendix is not seen with certainty. In the pelvis the uterus and bladder appear normal. The skeletal structures reveal benign cystic changes in the right inferior pubic ramus and proximal right femur. Surrounding soft tissues reveal subcutaneous edema suggesting anasarca. IMPRESSION: Generalized pulmonary vascular congestion with interstitial edema seen the lung bases. Anasarca No definite acute process identified in the abdomen and pelvis The appendix is not seen with certainty. Free fluid the pelvis with dialysis catheter noted in the posterior aspect of the pelvis. -Hypertension malignancy with urgency: wean off Cardene drip and transition to oral antihypertensives -ESRD on hemodialysis, s/p recent PD catheter placement: Nephrology is following -Elevated Lipase, ?pancreatitis: check abd ultrasound, lipid/TG level -HIV: continue home medications -Seizure disorder: continue on Keppra -Abdominal pains, possibly gastroparesis flare: treat with IV reglan -Constipation: treat with dulcolax suppository, addictions counselor on chronic narcotic use -DVT prophylaxis: scd only due to anemia and thrombocytopenia CCT 33 minutes History Interval history: Patient was seen and examined. Follow-up on current diagnosis of uncontrolled bp. Overnight uneventful. Patient denies any chest pain, shortness breath, nausea/vomiting or severe headaches. Imaging, nursing note, chart, labs and old chart reviewed. Discussed with patient. Patient still on cardene drip, trying to wean off. Patient c/o constipation. Hospitalist Physical - Physical exam Narrative exam: GEN: WDWN, NAD, Awake, Alert, Orientated x 3 HEENT: NCAT, EOMI, PERRL, OP Clear NECK: supple, no adenopathy, no thyromegaly, no JVD CVS/HEART: RRR, normal S1S2, pulses present bilaterally CHEST/LUNGS: CTA B, Symmetrical chest expansion, good air entry bilaterally GI/Abdomen: soft, diffuse abd tenderness, right PD in place, good bowel sounds, no guarding or rebound /Bladder: no suprapubic tenderness, no CVA or paraspinal tenderness EXT/Skin: no c/c/e, no obvious rash, large tattoo of leaves around right protestant , multiple facial piecing. MSK: FROM x 4 Neuro: CN 2-12 grossly intact, no new focal deficits Psych: calm - Constitutional Vitals: Temp Pulse Resp BP Pulse Ox 98.6 F 92 H 11 L 143/87 98 07/03/18 04:00 07/03/18 10:00 07/03/18 10:00 07/03/18 10:00 07/03/18 10:00 Results - Labs CBC & Chem 7: 07/02/18 05:30 07/02/18 05:30 Labs: Laboratory Last Values WBC 6.0 K/mm3 (4.5-11.0) 07/02/18 05:30 RBC 3.03 M/mm3 (3.65-5.03) L 07/02/18 05:30 Hgb 10.0 gm/dl (10.1-14.3) L 07/02/18 05:30 Hct 29.5 % (30.3-42.9) L 07/02/18 05:30 MCV 97 fl (79-97) 07/02/18 05:30 MCH 33 pg (28-32) H 07/02/18 05:30 MCHC 34 % (30-34) 07/02/18 05:30 RDW 21.9 % (13.2-15.2) H 07/02/18 05:30 Plt Count 131 K/mm3 (140-440) L 07/02/18 05:30 Add Manual Diff Complete 07/02/18 05:30 Total Counted 100 07/02/18 05:30 Seg Neuts % (Manual) 73.0 % (40.0-70.0) H 07/02/18 05:30 Band Neutrophils % 0 % 07/02/18 05:30 Lymphocytes % (Manual) 8.0 % (13.4-35.0) L 07/02/18 05:30 Reactive Lymphs % (Man) 0 % 07/02/18 05:30 Monocytes % (Manual) 8.0 % (0.0-7.3) H 07/02/18 05:30 Eosinophils % (Manual) 10.0 % (0.0-4.3) H 07/02/18 05:30 Basophils % (Manual) 1.0 % (0.0-1.8) 07/02/18 05:30 Metamyelocytes % 0 % 07/02/18 05:30 Myelocytes % 0 % 07/02/18 05:30 Promyelocytes % 0 % 07/02/18 05:30 Blast Cells % 0 % 07/02/18 05:30 Nucleated RBC % Not Reportable 07/02/18 05:30 Seg Neutrophils # Man 4.4 K/mm3 (1.8-7.7) 07/02/18 05:30 Band Neutrophils # 0.0 K/mm3 07/02/18 05:30 Lymphocytes # (Manual) 0.5 K/mm3 (1.2-5.4) L 07/02/18 05:30 Abs React Lymphs (Man) 0.0 K/mm3 07/02/18 05:30 Monocytes # (Manual) 0.5 K/mm3 (0.0-0.8) 07/02/18 05:30 Eosinophils # (Manual) 0.6 K/mm3 (0.0-0.4) H 07/02/18 05:30 Basophils # (Manual) 0.1 K/mm3 (0.0-0.1) 07/02/18 05:30 Metamyelocytes # 0.0 K/mm3 07/02/18 05:30 Myelocytes # 0.0 K/mm3 07/02/18 05:30 Promyelocytes # 0.0 K/mm3 07/02/18 05:30 Blast Cells # 0.0 K/mm3 07/02/18 05:30 WBC Morphology Not Reportable 07/02/18 05:30 Hypersegmented Neuts Not Reportable 07/02/18 05:30 Hyposegmented Neuts Not Reportable 07/02/18 05:30 Hypogranular Neuts Not Reportable 07/02/18 05:30 Smudge Cells Not Reportable 07/02/18 05:30 Toxic Granulation Not Reportable 07/02/18 05:30 Toxic Vacuolation Not Reportable 07/02/18 05:30 Dohle Bodies Not Reportable 07/02/18 05:30 Pelger-Huet Anomaly Not Reportable 07/02/18 05:30 Luis Rods Not Reportable 07/02/18 05:30 Platelet Estimate Consistent w auto 07/02/18 05:30 Clumped Platelets Not Reportable 07/02/18 05:30 Plt Clumps, EDTA Not Reportable 07/02/18 05:30 Large Platelets Not Reportable 07/02/18 05:30 Giant Platelets Not Reportable 07/02/18 05:30 Platelet Satelliting Not Reportable 07/02/18 05:30 Plt Morphology Comment Not Reportable 07/02/18 05:30 RBC Morphology Not Reportable 07/02/18 05:30 Dimorphic RBCs Not Reportable 07/02/18 05:30 Polychromasia Not Reportable 07/02/18 05:30 Hypochromasia Not Reportable 07/02/18 05:30 Poikilocytosis Not Reportable 07/02/18 05:30 Anisocytosis 1+ 07/02/18 05:30 Microcytosis 1+ 07/02/18 05:30 Macrocytosis Not Reportable 07/02/18 05:30 Spherocytes Not Reportable 07/02/18 05:30 Pappenheimer Bodies Not Reportable 07/02/18 05:30 Sickle Cells Not Reportable 07/02/18 05:30 Target Cells Not Reportable 07/02/18 05:30 Tear Drop Cells Not Reportable 07/02/18 05:30 Ovalocytes Not Reportable 07/02/18 05:30 Helmet Cells Not Reportable 07/02/18 05:30 Petersen-Carrick Bodies Not Reportable 07/02/18 05:30 [place] Rings Not Reportable 07/02/18 05:30 Lorenza Cells Not Reportable 07/02/18 05:30 Bite Cells Not Reportable 07/02/18 05:30 Crenated Cell Not Reportable 07/02/18 05:30 Elliptocytes Not Reportable 07/02/18 05:30 Acanthocytes (Spur) Not Reportable 07/02/18 05:30 Rouleaux Not Reportable 07/02/18 05:30 Hemoglobin C Crystals Not Reportable 07/02/18 05:30 Schistocytes Not Reportable 07/02/18 05:30 Malaria parasites Not Reportable 07/02/18 05:30 Marco Antonio Bodies Not Reportable 07/02/18 05:30 Hem Pathologist Commnt No 07/02/18 05:30 Sodium 136 mmol/L (137-145) L 07/02/18 05:30 Potassium 3.7 mmol/L (3.6-5.0) 07/02/18 05:30 Chloride 92.0 mmol/L (98-107) L 07/02/18 05:30 Carbon Dioxide 27 mmol/L (22-30) 07/02/18 05:30 Anion Gap 21 mmol/L 07/02/18 05:30 BUN 36 mg/dL (7-17) H 07/02/18 05:30 Creatinine 11.7 mg/dL (0.7-1.2) H 07/02/18 05:30 Estimated GFR 4 ml/min 07/02/18 05:30 BUN/Creatinine Ratio 3 % 07/02/18 05:30 Glucose 102 mg/dL (65-100) H 07/02/18 05:30 Calcium 9.0 mg/dL (8.4-10.2) 07/02/18 05:30 Total Bilirubin 0.50 mg/dL (0.1-1.2) 07/02/18 05:30 AST 17 units/L (5-40) 07/02/18 05:30 ALT 7 units/L (7-56) 07/02/18 05:30 Alkaline Phosphatase 92 units/L (35-129) 07/02/18 05:30 Troponin T 0.015 ng/mL (0.00-0.029) 07/02/18 05:30 Total Protein 7.4 g/dL (6.3-8.2) 07/02/18 05:30 Albumin 3.7 g/dL (3.9-5) L 07/02/18 05:30 Albumin/Globulin Ratio 1.0 % 07/02/18 05:30 Lipase 149 units/L (13-60) H 07/02/18 05:30 Fluid Type Peritoneal 07/02/18 22:49 Fluid Color Yellow 07/02/18 22:49 Fluid Appearance Clear 07/02/18 22:49 Fluid WBC 196 /mm3 07/02/18 22:49 Fluid RBC 453 /mm3 07/02/18 22:49 Fluid Seg Neutrophils 1.0 % 07/02/18 22:49 Fluid Lymphocytes 15.0 % 07/02/18 22:49 Fluid Reactive Lymphs Not Reportable 07/02/18 22:49 Fluid Monocytes 82.0 % 07/02/18 22:49 Fluid Eosinophils 2.0 % 07/02/18 22:49 Fluid Basophils Not Reportable 07/02/18 22:49
[2018-07-03] MEDS ORDERED: REGLAN IV PRN (13:30)
[2018-07-03] MEDS ORDERED: DULCOLAX PR ONE (14:00)
[2018-07-03] MEDS: PERCOCET 5/325 PO PRN (20:08)
[2018-07-03] MEDS ORDERED: NACL 0.9 (PRIMING MACHINE ONLY DIALYSIS) MC ONE ×2 (20:39→22:55)
[2018-07-03] MEDS ORDERED: SENOKOT PO SCH (22:00)
[2018-07-04] MEDS: DILAUDID IV PRN ×4 (01:55→15:20)
[2018-07-04] MEDS: APRESOLINE PO SCH ×2 (06:02→14:29)
[2018-07-04 06:22] LABS: Hematocrit 30.7 % (30.3-42.9); Hemoglobin 10.1 gm/dl (10.1-14.3); Mean Corpuscular HGB Conc 33 % (30-34); Mean Corpuscular Hemoglobin 33 pg (28-32); Mean Corpuscular Volume 100 fl (79-97); Platelet Count 115 K/mm3 (140-440); Red Blood Count 3.07 M/mm3 (3.65-5.03)
[2018-07-04 06:23] LABS: Red Cell Distribution Width 21.3 % (13.2-15.2)
[2018-07-04 06:45] LABS: Calcium 8.4 mg/dL (8.4-10.2)
[2018-07-04] MEDS ORDERED: PROCARDIA XL PO SCH ×2 (10:00→22:00)
[2018-07-04] MEDS: COLACE PO SCH (10:28)
[2018-07-04] MEDS: COZAAR PO SCH (10:28)
[2018-07-04] MEDS: KEPPRA PO SCH (10:28)
[2018-07-04] MEDS: CEPHULAC PO SCH (10:29)
[2018-07-04] MEDS: LOPRESSOR PO SCH (10:29)
--- NOTE | 2018-07-04 10:49 | Progress Note ---
Assessment and Plan Impression: * ESRD * HTN urgency * aortic dissection * peritonitis * ANemia in esrd * volume overload * abdominal pain Plan: * hd QMWF and prn, plans for hd today as well * iv abx for peritonitis * needs to continue hemodialysis for now * aortic dissection noted, agree with plans for [place] transfer * follow up on pd fluid cultures * uf as tolerated with hd, attempt today to control bp * strict i/os, avoid nephrotoxins * daily lytes Subjective Date of service: 07/04/18 Principal diagnosis: esrd, abdominal pain, peritonitis Interval history: resting well in bed today Objective - Exam Narrative Exam: - General Limitations: No Limitations General appearance: alert, in distress - Head Head exam: Present: atraumatic, normocephalic, normal inspection - Eye Eye exam: Present: normal appearance, PERRL - ENT ENT exam: Present: normal exam, normal orophraynx, mucous membranes moist - Neck Neck exam: Present: normal inspection, full ROM. Absent: tenderness, meningismus, lymphadenopathy, thyromegaly - Respiratory Respiratory exam: Present: normal lung sounds bilaterally - Cardiovascular Cardiovascular Exam: Present: regular rate, normal rhythm, normal heart sounds - GI/Abdominal GI/Abdominal exam: Present: soft, normal bowel sounds. Absent: distended, tenderness, guarding, rebound, rigid, hypoactive bowel sounds, organomegaly, mass, bruit, pulsatile mass - Extremities Exam Extremities exam: Present: normal inspection, full ROM, normal capillary refill - Back Exam Back exam: Present: normal inspection, full ROM. Absent: tenderness, CVA tenderness (R), CVA tenderness (L), muscle spasm, paraspinal tenderness, vertebral tenderness - Neurological Exam Neurological exam: Present: alert, oriented X3, CN II-XII intact, normal gait, reflexes normal - Skin Skin exam: Present: warm, intact, normal color - Vital Signs Vital signs: Vital Signs - 12hr 07/03/18 07/03/18 07/03/18 22:58 23:00 23:15 Temperature Pulse Rate 91 H 91 H 90 Pulse Rate [ From Monitor] Respiratory 9 L 11 L 11 L Rate Respiratory Rate [Oral] Blood Pressure 157/94 166/97 172/96 O2 Sat by Pulse 98 98 98 Oximetry 07/03/18 07/03/18 07/04/18 23:30 23:45 00:00 Temperature 99.4 F Pulse Rate 89 89 82 Pulse Rate [ 81 From Monitor] Respiratory 11 L 11 L 15 Rate Respiratory Rate [Oral] Blood Pressure 167/95 175/96 163/95 O2 Sat by Pulse 99 99 99 Oximetry 07/04/18 07/04/18 07/04/18 00:15 00:30 00:45 Temperature Pulse Rate 78 78 78 Pulse Rate [ From Monitor] Respiratory 14 13 15 Rate Respiratory Rate [Oral] Blood Pressure 164/91 167/106 170/100 O2 Sat by Pulse 98 96 98 Oximetry 07/04/18 07/04/18 07/04/18 01:00 01:15 01:30 Temperature Pulse Rate 78 80 80 Pulse Rate [ From Monitor] Respiratory 15 13 15 Rate Respiratory Rate [Oral] Blood Pressure 170/100 193/105 202/107 O2 Sat by Pulse 85 96 98 Oximetry 07/04/18 07/04/18 07/04/18 01:45 02:00 02:16 Temperature Pulse Rate 80 79 80 Pulse Rate [ From Monitor] Respiratory 12 11 L 9 L Rate Respiratory Rate [Oral] Blood Pressure 202/106 198/113 176/103 O2 Sat by Pulse 92 96 95 Oximetry 07/04/18 07/04/18 07/04/18 02:30 02:45 03:00 Temperature Pulse Rate 86 81 79 Pulse Rate [ From Monitor] Respiratory 12 10 L 9 L Rate Respiratory Rate [Oral] Blood Pressure 176/103 173/96 173/96 O2 Sat by Pulse 94 98 99 Oximetry 07/04/18 07/04/18 07/04/18 03:16 03:30 03:46 Temperature Pulse Rate 79 79 78 Pulse Rate [ From Monitor] Respiratory 9 L 11 L 14 Rate Respiratory Rate [Oral] Blood Pressure 177/105 177/105 193/96 O2 Sat by Pulse 99 99 99 Oximetry 07/04/18 07/04/18 07/04/18 04:00 04:16 04:30 Temperature 99.4 F Pulse Rate 90 83 85 Pulse Rate [ 81 From Monitor] Respiratory 13 10 L 12 Rate Respiratory Rate [Oral] Blood Pressure 193/96 202/103 162/87 O2 Sat by Pulse 97 98 97 Oximetry 07/04/18 07/04/18 07/04/18 04:46 05:00 05:16 Temperature Pulse Rate 85 86 87 Pulse Rate [ From Monitor] Respiratory 12 12 16 Rate Respiratory Rate [Oral] Blood Pressure 202/103 202/103 139/73 O2 Sat by Pulse 100 99 99 Oximetry 07/04/18 07/04/18 07/04/18 05:30 05:46 06:00 Temperature Pulse Rate 90 89 88 Pulse Rate [ From Monitor] Respiratory 12 12 11 L Rate Respiratory Rate [Oral] Blood Pressure 139/73 152/77 152/86 O2 Sat by Pulse 99 99 99 Oximetry 07/04/18 07/04/18 07/04/18 06:02 06:16 06:30 Temperature Pulse Rate 87 87 85 Pulse Rate [ From Monitor] Respiratory 12 11 L Rate Respiratory Rate [Oral] Blood Pressure 152/86 149/87 146/83 O2 Sat by Pulse 96 98 Oximetry 07/04/18 07/04/18 07/04/18 06:46 07:00 07:16 Temperature Pulse Rate 85 88 82 Pulse Rate [ From Monitor] Respiratory 16 6 L 12 Rate Respiratory Rate [Oral] Blood Pressure 149/87 149/87 146/83 O2 Sat by Pulse 98 99 98 Oximetry 07/04/18 07/04/18 07/04/18 07:30 07:46 08:00 Temperature 98.1 F Pulse Rate 82 82 83 Pulse Rate [ 94 H From Monitor] Respiratory 9 L 13 10 L Rate Respiratory Rate [Oral] Blood Pressure 154/92 154/92 168/101 O2 Sat by Pulse 100 99 99 Oximetry 07/04/18 07/04/18 07/04/18 08:15 08:30 08:46 Temperature Pulse Rate 84 91 H 99 H Pulse Rate [ From Monitor] Respiratory 15 13 16 Rate Respiratory Rate [Oral] Blood Pressure 168/101 168/101 158/110 O2 Sat by Pulse 100 99 82 L Oximetry 07/04/18 07/04/18 07/04/18 09:36 09:46 10:00 Temperature Pulse Rate 88 89 Pulse Rate [ From Monitor] Respiratory 17 15 Rate Respiratory 12 Rate [Oral] Blood Pressure 158/110 200/112 200/112 O2 Sat by Pulse 98 97 96 Oximetry 07/04/18 07/04/18 07/04/18 10:16 10:28 10:29 Temperature Pulse Rate 92 H 86 88 Pulse Rate [ From Monitor] Respiratory 13 Rate Respiratory Rate [Oral] Blood Pressure 197/125 197/125 197/125 O2 Sat by Pulse 99 Oximetry - Lab 07/04/18 05:42 07/04/18 05:42 Most recent lab results Calcium 8.4 mg/dL (8.4-10.2) 07/04/18 05:42
[2018-07-04] MEDS ORDERED: ROXICODONE PO PRN (11:10)
[2018-07-04] MEDS ORDERED: APRESOLINE IV PRN (11:15)
[2018-07-04] MEDS: PERCOCET 5/325 PO PRN (11:35)
[2018-07-04] MEDS: ZOFRAN IV PRN ×2 (11:36→17:00)
[2018-07-04] MEDS ORDERED: COREG PO SCH (12:00)
[2018-07-04] MEDS: CARDENE 50 MG in NACL 0.9% 250ML 230 ML IV SCH (12:53)
--- NOTE | 2018-07-04 12:53 | Ultrasound Report ---
FINAL REPORT EXAM: US ABDOMEN COMPLETE HISTORY: abd pains COMPARISON: None. TECHNIQUE: Multiple transverse and longitudinal sonographic grayscale images of the abdomen were obtained, supplemented with Doppler imaging. FINDINGS: Pancreas:Visualized portions normal. Liver appearance: No focal internal lesion. Normal echogenicity.No biliary ductal dilatation. CBD: 3.4mm. Gallbladder: Fluid filled and without stones. There is gallbladder wall thickening. Right kidney length: 9.2 cm. Right kidney appearance: Diffusely echogenic. No hydronephrosis. No echogenic focus or mass. Left kidney length: 8 cm. Left kidney appearance: Diffusely echogenic. No hydronephrosis. No echogenic focus or mass. Spleen: 10.9 cm in length. Normal echogenicity. No focal internal lesion. Aorta: There is a dissection flap within the abdominal aorta extending from the proximal abdominal aorta to the mid to lower aorta. The upper and lower extent of the dissection flap are not fully visualized. The aorta measures up to 2.9 centimeters in diameter. IVC: Normal. Other findings: There is free fluid in the right upper quadrant and right lower quadrant. There are small bilateral pleural effusions. IMPRESSION: Abdominal aortic dissection involving the visualized abdominal aorta. The upper and lower extent of the dissection flap are not fully visualized. This finding was discussed with KATYA Reyes at 12:51 p.m., Eastern standard time, on 07/04/2018. CTA of the chest abdomen and pelvis can be obtained for further evaluation. Small amount of abdominal ascites. Small bilateral pleural effusions. Small and echogenic kidneys, likely due to medical renal disease. Mild gallbladder wall thickening which is nonspecific and may represent contraction.
--- NOTE | 2018-07-04 12:53 | Progress Note ---
Assessment and Plan Assessment and plan: Patient is a 43 yo woman with a history of HIV, ESRD on hemodialysis MWF, AOCD and s/p Right quadrant PD catheter placement (about 3 weeks ago at [facility]), Seizure disorders, hypertension and Gastroparesis with chronic narcotic pain syndrome who presents with N/V and abdominal pains. She was found to have bp of 256/144. She was started on Cardene drip and admitted to ICU. * CT abd/pelvis without contrast FINDINGS: Imaging through the lung bases reveal generalized vascular congestion and interstitial edema. Pleural fluid is not seen. The study is limited without IV contrast. The liver, gallbladder, pancreas, spleen, and adrenal glands appear normal. The kidneys are atrophic. There is no evidence of hydronephrosis. There is a small amount of free fluid in the abdomen. There is a dialysis catheter coiled in the posterior aspect of the pelvis. The bowel loops are not distended. The entire appendix is not seen with certainty. In the pelvis the uterus and bladder appear normal. The skeletal structures reveal benign cystic changes in the right inferior pubic ramus and proximal right femur. Surrounding soft tissues reveal subcutaneous edema suggesting anasarca. IMPRESSION: Generalized pulmonary vascular congestion with interstitial edema seen the lung bases. Anasarca No definite acute process identified in the abdomen and pelvis The appendix is not seen with certainty. Free fluid the pelvis with dialysis catheter noted in the posterior aspect of the pelvis. -Dissecting aortic aneurysm: control bp, transfer to [facility] initiated -Hypertension malignancy with urgency: wean off Cardene drip and transition to oral antihypertensives -ESRD on hemodialysis, s/p recent PD catheter placement: Nephrology is following -Elevated Lipase, ?pancreatitis: check abd ultrasound, lipid/TG level -HIV: continue home medications -Seizure disorder: continue on Keppra -Abdominal pains, possibly gastroparesis flare: treat with IV reglan -Constipation: treat with dulcolax suppository, halfway house counselor on chronic narcotic use -DVT prophylaxis: scd only due to anemia and thrombocytopenia RN called me regarding prelim. Abdominal Ultrasound (ordered yesterday and done today) reporting dissecting proximal to lower mid abdominal aorta. So, I called [facility] and spoke with Kayy. Dr. Eldridge is reaching out to vascular. CCT 34 minutes History Interval history: Patient was seen and examined. Follow-up on current diagnosis of uncontrolled bp. Overnight uneventful. Patient denies any chest pain, shortness breath, nausea/vomiting or severe headaches. Imaging, nursing note, chart, labs and old chart reviewed. Discussed with patient. Patient still on cardene drip, trying to wean off. Patient c/o abdominal pains. Sister at bedside. Patient is very upset and wants to be transferred to [facility]. Dr. Jai Barajas is her [facility] wooden tank erector. Hospitalist Physical - Physical exam Narrative exam: GEN: WDWN, NAD, Awake, Alert, Orientated x 3 HEENT: NCAT, EOMI, PERRL, OP Clear NECK: supple, no adenopathy, no thyromegaly, no JVD CVS/HEART: RRR, normal S1S2, pulses present bilaterally CHEST/LUNGS: CTA B, Symmetrical chest expansion, good air entry bilaterally GI/Abdomen: soft, diffuse abd tenderness, right PD in place, good bowel sounds, no guarding or rebound /Bladder: no suprapubic tenderness, no CVA or paraspinal tenderness EXT/Skin: no c/c/e, no obvious rash, large tattoo of leaves around right protestant , multiple facial piecing. MSK: FROM x 4 Neuro: CN 2-12 grossly intact, no new focal deficits Psych: calm - Constitutional Vitals: Temp Pulse Resp BP Pulse Ox 97.5 F L 88 12 203/114 100 07/04/18 12:00 07/04/18 12:00 07/04/18 12:00 07/04/18 12:00 07/04/18 12:00 General appearance: Present: no acute distress, well-nourished Results - Labs CBC & Chem 7: 07/04/18 05:42 07/04/18 05:42 Labs: Laboratory Last Values WBC 5.8 K/mm3 (4.5-11.0) 07/04/18 05:42 RBC 3.07 M/mm3 (3.65-5.03) L 07/04/18 05:42 Hgb 10.1 gm/dl (10.1-14.3) 07/04/18 05:42 Hct 30.7 % (30.3-42.9) 07/04/18 05:42 MCV 100 fl (79-97) H 07/04/18 05:42 MCH 33 pg (28-32) H 07/04/18 05:42 MCHC 33 % (30-34) 07/04/18 05:42 RDW 21.3 % (13.2-15.2) H 07/04/18 05:42 Plt Count 115 K/mm3 (140-440) L 07/04/18 05:42 Add Manual Diff Complete 07/02/18 05:30 Total Counted 100 07/02/18 05:30 Seg Neuts % (Manual) 73.0 % (40.0-70.0) H 07/02/18 05:30 Band Neutrophils % 0 % 07/02/18 05:30 Lymphocytes % (Manual) 8.0 % (13.4-35.0) L 07/02/18 05:30 Reactive Lymphs % (Man) 0 % 07/02/18 05:30 Monocytes % (Manual) 8.0 % (0.0-7.3) H 07/02/18 05:30 Eosinophils % (Manual) 10.0 % (0.0-4.3) H 07/02/18 05:30 Basophils % (Manual) 1.0 % (0.0-1.8) 07/02/18 05:30 Metamyelocytes % 0 % 07/02/18 05:30 Myelocytes % 0 % 07/02/18 05:30 Promyelocytes % 0 % 07/02/18 05:30 Blast Cells % 0 % 07/02/18 05:30 Nucleated RBC % Not Reportable 07/02/18 05:30 Seg Neutrophils # Man 4.4 K/mm3 (1.8-7.7) 07/02/18 05:30 Band Neutrophils # 0.0 K/mm3 07/02/18 05:30 Lymphocytes # (Manual) 0.5 K/mm3 (1.2-5.4) L 07/02/18 05:30 Abs React Lymphs (Man) 0.0 K/mm3 07/02/18 05:30 Monocytes # (Manual) 0.5 K/mm3 (0.0-0.8) 07/02/18 05:30 Eosinophils # (Manual) 0.6 K/mm3 (0.0-0.4) H 07/02/18 05:30 Basophils # (Manual) 0.1 K/mm3 (0.0-0.1) 07/02/18 05:30 Metamyelocytes # 0.0 K/mm3 07/02/18 05:30 Myelocytes # 0.0 K/mm3 07/02/18 05:30 Promyelocytes # 0.0 K/mm3 07/02/18 05:30 Blast Cells # 0.0 K/mm3 07/02/18 05:30 WBC Morphology Not Reportable 07/02/18 05:30 Hypersegmented Neuts Not Reportable 07/02/18 05:30 Hyposegmented Neuts Not Reportable 07/02/18 05:30 Hypogranular Neuts Not Reportable 07/02/18 05:30 Smudge Cells Not Reportable 07/02/18 05:30 Toxic Granulation Not Reportable 07/02/18 05:30 Toxic Vacuolation Not Reportable 07/02/18 05:30 Dohle Bodies Not Reportable 07/02/18 05:30 Pelger-Huet Anomaly Not Reportable 07/02/18 05:30 Luis Rods Not Reportable 07/02/18 05:30 Platelet Estimate Consistent w auto 07/02/18 05:30 Clumped Platelets Not Reportable 07/02/18 05:30 Plt Clumps, EDTA Not Reportable 07/02/18 05:30 Large Platelets Not Reportable 07/02/18 05:30 Giant Platelets Not Reportable 07/02/18 05:30 Platelet Satelliting Not Reportable 07/02/18 05:30 Plt Morphology Comment Not Reportable 07/02/18 05:30 RBC Morphology Not Reportable 07/02/18 05:30 Dimorphic RBCs Not Reportable 07/02/18 05:30 Polychromasia Not Reportable 07/02/18 05:30 Hypochromasia Not Reportable 07/02/18 05:30 Poikilocytosis Not Reportable 07/02/18 05:30 Anisocytosis 1+ 07/02/18 05:30 Microcytosis 1+ 07/02/18 05:30 Macrocytosis Not Reportable 07/02/18 05:30 Spherocytes Not Reportable 07/02/18 05:30 Pappenheimer Bodies Not Reportable 07/02/18 05:30 Sickle Cells Not Reportable 07/02/18 05:30 Target Cells Not Reportable 07/02/18 05:30 Tear Drop Cells Not Reportable 07/02/18 05:30 Ovalocytes Not Reportable 07/02/18 05:30 Helmet Cells Not Reportable 07/02/18 05:30 Petersen-Sebring Bodies Not Reportable 07/02/18 05:30 [place] Rings Not Reportable 07/02/18 05:30 Lorenza Cells Not Reportable 07/02/18 05:30 Bite Cells Not Reportable 07/02/18 05:30 Crenated Cell Not Reportable 07/02/18 05:30 Elliptocytes Not Reportable 07/02/18 05:30 Acanthocytes (Spur) Not Reportable 07/02/18 05:30 Rouleaux Not Reportable 07/02/18 05:30 Hemoglobin C Crystals Not Reportable 07/02/18 05:30 Schistocytes Not Reportable 07/02/18 05:30 Malaria parasites Not Reportable 07/02/18 05:30 Marco Antonio Bodies Not Reportable 07/02/18 05:30 Hem Pathologist Commnt No 07/02/18 05:30 Sodium 138 mmol/L (137-145) 07/04/18 05:42 Potassium 3.8 mmol/L (3.6-5.0) 07/04/18 05:42 Chloride 97.6 mmol/L (98-107) L 07/04/18 05:42 Carbon Dioxide 26 mmol/L (22-30) 07/04/18 05:42 Anion Gap 18 mmol/L 07/04/18 05:42 BUN 11 mg/dL (7-17) 07/04/18 05:42 Creatinine 5.2 mg/dL (0.7-1.2) H D 07/04/18 05:42 Estimated GFR 11 ml/min 07/04/18 05:42 BUN/Creatinine Ratio 2 % 07/04/18 05:42 Glucose 82 mg/dL (65-100) 07/04/18 05:42 Calcium 8.4 mg/dL (8.4-10.2) 07/04/18 05:42 Total Bilirubin 0.50 mg/dL (0.1-1.2) 07/02/18 05:30 AST 17 units/L (5-40) 07/02/18 05:30 ALT 7 units/L (7-56) 07/02/18 05:30 Alkaline Phosphatase 92 units/L (35-129) 07/02/18 05:30 Troponin T 0.015 ng/mL (0.00-0.029) 07/02/18 05:30 Total Protein 7.4 g/dL (6.3-8.2) 07/02/18 05:30 Albumin 3.7 g/dL (3.9-5) L 07/02/18 05:30 Albumin/Globulin Ratio 1.0 % 07/02/18 05:30 Lipase 149 units/L (13-60) H 07/02/18 05:30 Fluid Type Peritoneal 07/02/18 22:49 Fluid Color Yellow 07/02/18 22:49 Fluid Appearance Clear 07/02/18 22:49 Fluid WBC 196 /mm3 07/02/18 22:49 Fluid RBC 453 /mm3 07/02/18 22:49 Fluid Seg Neutrophils 1.0 % 07/02/18 22:49 Fluid Lymphocytes 15.0 % 07/02/18 22:49 Fluid Reactive Lymphs Not Reportable 07/02/18 22:49 Fluid Monocytes 82.0 % 07/02/18 22:49 Fluid Eosinophils 2.0 % 07/02/18 22:49 Fluid Basophils Not Reportable 07/02/18 22:49
--- NOTE | 2018-07-04 13:04 | Discharge Summary ---
Providers - Providers Date of Admission: 07/02/18 09:04 Attending physician: ARSEN CRAMER 07/02/18 09:03 Consult to Physician [CONS] Stat Comment: Consulting Provider: SHARMIN ALVAREZ Physician Instructions: Reason For Exam: hypertensive emergency, ESRD Dialysis. 07/02/18 11:17 Consult to Physician [CONS] Routine Comment: Consulting Provider: TAN MAURICE Physician Instructions: Reason For Exam: critical care management 07/03/18 10:21 Physical Therapy Evaluation and Treat [CONS] Routine Comment: Reason For Exam: Debility 07/04/18 12:56 Consult to Physician [CONS] Routine Reason For Exam: dissecting aortic aneursym Consulting Provider: TERRELL VAZQUEZ Physician Instructions: Comment: Primary care physician: [employer] Hospitalization Condition: Serious Hospital course: Patient is a 43 yo woman with a history of HIV, ESRD on hemodialysis MWF, AOCD and s/p Right quadrant PD catheter placement (about 3 weeks ago at [facility]), Seizure disorders, hypertension and Gastroparesis with chronic narcotic pain syndrome who presents with N/V and abdominal pains. She was found to have bp of 256/144. She was started on Cardene drip and admitted to ICU. In reviewing the labs, I discovered that patient lipase was elevated, so I ordered abdominal ultrasound * CT abd/pelvis without contrast FINDINGS: Imaging through the lung bases reveal generalized vascular congestion and interstitial edema. Pleural fluid is not seen. The study is limited without IV contrast. The liver, gallbladder, pancreas, spleen, and adrenal glands appear normal. The kidneys are atrophic. There is no evidence of hydronephrosis. There is a small amount of free fluid in the abdomen. There is a dialysis catheter coiled in the posterior aspect of the pelvis. The bowel loops are not distended. The entire appendix is not seen with certainty. In the pelvis the uterus and bladder appear normal. The skeletal structures reveal benign cystic changes in the right inferior pubic ramus and proximal right femur. Surrounding soft tissues reveal subcutaneous edema suggesting anasarca. IMPRESSION: Generalized pulmonary vascular congestion with interstitial edema seen the lung bases. Anasarca No definite acute process identified in the abdomen and pelvis The appendix is not seen with certainty. Free fluid the pelvis with dialysis catheter noted in the posterior aspect of the pelvis. -Dissecting Abdominal Aorta: control bp, transfer to [facility] initiated -Hypertension malignancy with urgency: wean off Cardene drip and transition to oral antihypertensives -ESRD on hemodialysis, s/p recent PD catheter placement: Nephrology is following -Elevated Lipase, ?pancreatitis: check abd ultrasound, lipid/TG level -HIV: continue home medications -Seizure disorder: continue on Keppra -Abdominal pains, related to Dissecting aortic aneursym -Constipation: treat with dulcolax suppository, residential substance abuse counselor on chronic narcotic use -DVT prophylaxis: scd only due to anemia and thrombocytopenia Dr. Yusuf willing to accept, Disposition: DC/[place]-70 ANOTHER TYPE HLTHCARE Time spent for discharge: 34 minutes Core Measure Documentation - Palliative Care Palliative Care/ Comfort Measures: Not Applicable - Core Measures Any of the following diagnoses?: none - VTE Discharge Requirements Deep Vein Thrombosis/Pulmonary Embolism Present on Admission: No Has pt received <5 days of overlap therapy or INR<2.0: No Anticoagulant overlap therapy prescribed at discharge: No Contraindication No Overlap Therapy order at DC: Not Indicated Exam - Physical Exam Narrative exam: GEN: WDWN, NAD, Awake, Alert, Orientated x 3 HEENT: NCAT, EOMI, PERRL, OP Clear NECK: supple, no adenopathy, no thyromegaly, no JVD CVS/HEART: RRR, normal S1S2, pulses present bilaterally CHEST/LUNGS: CTA B, Symmetrical chest expansion, good air entry bilaterally GI/Abdomen: soft, diffuse abd tenderness, right PD in place, good bowel sounds, no guarding or rebound /Bladder: no suprapubic tenderness, no CVA or paraspinal tenderness EXT/Skin: no c/c/e, no obvious rash, large tattoo of leaves around right holiness , multiple facial piecing. MSK: FROM x 4 Neuro: CN 2-12 grossly intact, no new focal deficits Psych: calm - Constitutional Vitals: Temp Pulse Resp BP Pulse Ox 97.5 F L 88 12 203/114 100 07/04/18 12:00 07/04/18 12:00 07/04/18 12:07/04/18 12:07/04/18 12:00 Plan Activity: other (no strenous activity) Diet: other (NPO) Follow up with: PRIMARY CARE, [Primary Care Provider] - 3-5 Days
--- NOTE | 2018-07-04 13:29 | Progress Note ---
Assessment and Plan 43 y/o female with abdominal pain and hypertensive Emergency, now found to have abdominal aortic aneurysm 1. [facility] aware, awaiting CTA of chest abdomen and pelvis 2. Restarted cardene drip now with lower parameters for systolics given acute finding. Still at risk for stroke given residential history of HTN but must accept this risk now given dissection as elevated BP's can make this worse CCt 31 Subjective Date of service: 07/04/18 Principal diagnosis: esrd, abdominal pain, peritonitis Interval history: Patient still with abdominal pain. Ultrasound ordered which shows dissection. Extent is not confirmed. Placed back on Cardene drip and primary has initiated transfer with [facility] for further care. Objective - Constitutional Vitals: Vital Signs - 12hr 07/04/18 07/04/18 07/04/18 01:30 01:45 02:00 Temperature Pulse Rate 80 80 79 Pulse Rate [ From Monitor] Respiratory 15 12 11 L Rate Respiratory Rate [Oral] Blood Pressure 202/107 202/106 198/113 O2 Sat by Pulse 98 92 96 Oximetry 07/04/18 07/04/18 07/04/18 02:16 02:30 02:45 Temperature Pulse Rate 80 86 81 Pulse Rate [ From Monitor] Respiratory 9 L 12 10 L Rate Respiratory Rate [Oral] Blood Pressure 176/103 176/103 173/96 O2 Sat by Pulse 95 94 98 Oximetry 07/04/18 07/04/18 07/04/18 03:00 03:16 03:30 Temperature Pulse Rate 79 79 79 Pulse Rate [ From Monitor] Respiratory 9 L 9 L 11 L Rate Respiratory Rate [Oral] Blood Pressure 173/96 177/105 177/105 O2 Sat by Pulse 99 99 99 Oximetry 07/04/18 07/04/18 07/04/18 03:46 04:00 04:16 Temperature 99.4 F Pulse Rate 78 90 83 Pulse Rate [ 81 From Monitor] Respiratory 14 13 10 L Rate Respiratory Rate [Oral] Blood Pressure 193/96 193/96 202/103 O2 Sat by Pulse 99 97 98 Oximetry 07/04/18 07/04/18 07/04/18 04:30 04:46 05:00 Temperature Pulse Rate 85 85 86 Pulse Rate [ From Monitor] Respiratory 12 12 12 Rate Respiratory Rate [Oral] Blood Pressure 162/87 202/103 202/103 O2 Sat by Pulse 97 100 99 Oximetry 09/07/04/18 07/04/18 05:16 05:30 05:46 Temperature Pulse Rate 87 90 89 Pulse Rate [ From Monitor] Respiratory 16 12 12 Rate Respiratory Rate [Oral] Blood Pressure 139/73 139/73 152/77 O2 Sat by Pulse 99 99 99 Oximetry 07/04/18 07/04/18 07/04/18 06:00 06:02 06:16 Temperature Pulse Rate 88 87 87 Pulse Rate [ From Monitor] Respiratory 11 L 12 Rate Respiratory Rate [Oral] Blood Pressure 152/86 152/86 149/87 O2 Sat by Pulse 99 96 Oximetry 07/04/18 07/04/18 07/04/18 06:30 06:46 07:00 Temperature Pulse Rate 85 85 88 Pulse Rate [ From Monitor] Respiratory 11 L 16 6 L Rate Respiratory Rate [Oral] Blood Pressure 146/83 149/87 149/87 O2 Sat by Pulse 98 98 99 Oximetry 07/04/18 07/04/18 07/04/18 07:16 07:30 07:46 Temperature Pulse Rate 82 82 82 Pulse Rate [ From Monitor] Respiratory 12 9 L 13 Rate Respiratory Rate [Oral] Blood Pressure 146/83 154/92 154/92 O2 Sat by Pulse 98 100 99 Oximetry 07/04/18 07/04/18 07/04/18 08:00 08:15 08:30 Temperature 98.1 F Pulse Rate 83 84 91 H Pulse Rate [ 94 H From Monitor] Respiratory 10 L 15 13 Rate Respiratory Rate [Oral] Blood Pressure 168/101 168/101 168/101 O2 Sat by Pulse 99 100 99 Oximetry 07/04/18 07/04/18 07/04/18 08:46 09:36 09:46 Temperature Pulse Rate 99 H 88 Pulse Rate [ From Monitor] Respiratory 16 17 Rate Respiratory Rate [Oral] Blood Pressure 158/110 158/110 200/112 O2 Sat by Pulse 82 L 98 97 Oximetry 07/04/18 07/04/18 07/04/18 10:00 10:16 10:28 Temperature Pulse Rate 89 92 H 86 Pulse Rate [ From Monitor] Respiratory 15 13 Rate Respiratory 12 Rate [Oral] Blood Pressure 200/112 197/125 197/125 O2 Sat by Pulse 96 99 Oximetry 07/04/18 07/04/18 07/04/18 10:29 10:30 10:46 Temperature Pulse Rate 88 86 86 Pulse Rate [ From Monitor] Respiratory 14 10 L Rate Respiratory Rate [Oral] Blood Pressure 197/125 204/110 204/110 O2 Sat by Pulse 94 96 Oximetry 07/04/18 07/04/18 07/04/18 11:00 11:16 11:30 Temperature Pulse Rate 86 92 H 89 Pulse Rate [ From Monitor] Respiratory 12 12 16 Rate Respiratory Rate [Oral] Blood Pressure 204/110 197/110 213/124 O2 Sat by Pulse 96 98 99 Oximetry 07/04/18 07/04/18 11:46 12:00 Temperature 97.5 F L Pulse Rate 87 88 Pulse Rate [ 88 From Monitor] Respiratory 14 15 Rate Respiratory Rate [Oral] Blood Pressure 213/124 203/114 O2 Sat by Pulse 100 100 Oximetry General appearance: Present: mild distress - EENT Eyes: PERRL ENT: hearing intact - Neck Neck: supple - Respiratory Respiratory: bilateral: rales (bibasilar) - Labs CBC & Chem 7: 07/04/18 05:42 07/04/18 05:42 Labs: Abnormal lab results 07/04/18 07/04/18 Range/Units 05:42 05:42 RBC 3.07 L (3.65-5.03) M/mm3 MCV 100 H (79-97) fl MCH 33 H (28-32) pg RDW 21.3 H (13.2-15.2) % Plt Count 115 L (140-440) K/mm3 Chloride 97.6 L (98-107) mmol/L Creatinine 5.2 H D (0.7-1.2) mg/dL
--- NOTE | 2018-07-04 14:45 | Cat Scan Report ---
CTA CHEST ABDOMEN AND PELVIS History: Aortic dissection. Technique: Helical CT following IV contrast. Sagittal and coronal reformatted images. Findings: A long segment aortic dissection is identified. The dissection arises from the posterior aortic arch just after the takeoff of the left subclavian artery. The dissection extends to the right common iliac artery. The celiac axis, SMA and right renal artery arise from the true lumen. The left renal artery and RUSTAM arise from the false lumen. The left common iliac artery and left external iliac artery appear occluded. There is reconstitution of flow in the left femoral artery from collateral vessels. No evidence for aneurysm or rupture. Mild cardiomegaly and small layering pleural effusions are identified suggesting mild CHF. The lungs are adequately aerated although there is mild bibasilar atelectasis. The liver, biliary system, pancreas, spleen, adrenal glands and bowel loops are unremarkable. The uterus and adnexa are within normal limits. Bilateral renal atrophy is identified consistent with chronic renal parenchymal disease. The ureters and bladder are unremarkable. There is small pelvic ascites. A peritoneal dialysis catheter is in place. Impression: Long segment aortic dissection as outlined above. The age of this dissection is indeterminate. See above. Mild CHF. Chronic renal parenchymal disease.
[2018-07-04] MEDS ORDERED: NORMODYNE 200 MG in D5W 160 ML IV SCH (16:00)
--- NOTE | 2018-07-04 16:16 | Consultation ---
History of Present Illness - Reason for Consult Consult date: 07/04/18 Aortic Dissection Requesting physician: ARSEN CRAMER - History of Present Illness This patient is a 43-year-old [place] female that was admitted via the emergency room on 07/02/2018 due to abdominal pain. She has end-stage renal disease recently converted from hemodialysis to peritoneal dialysis. PD catheter was placed approximately 3 weeks ago, and she started using the catheter for dialysis earlier this week. She had an abdominal ultrasound which suggested an abdominal aortic aneurysm involving the visualized abdominal aorta. A CT angiogram was reported as a long segment aortic dissection (age indeterminate) arising from the posterior aortic arch just after the takeoff of the left subclavian artery. The dissection extends to the right common iliac artery. The celiac axis, SMA, and right renal arteries arise from the true lumen, and the left renal artery and the RUSTAM arise from the false lumen. The left common iliac artery and left external iliac artery appear occluded with reconstitution of flow and the left femoral artery via collateral vessels. No evidence of aneurysm or rupture were noted. A vascular surgery consult has been requested to further evaluate. Arrangements are being completed for the patient to be transferred to [facility]. Past History Past Medical History: ESRD, HIV/AIDS, hypertension, seizures, other (chronic pain) Past Surgical History: Other (left internal jugular vein permacath, PD catheter insertion) Social history: denies: smoking Family history: no significant family history Medications and Allergies Allergies Allergy/AdvReac Type Severity Reaction Status Date / Time No Known Allergies Allergy Unverified 04/13/18 17:57 Home Medications Medication Instructions Recorded Confirmed Last Taken Type Losartan [Cozaar] 100 mg PO QDAY #30 tablet 04/17/18 07/03/18 07/03/18 10:00 Rx hydrALAZINE [Apresoline TAB] 50 mg PO Q8HR #90 tablet 04/17/18 07/03/18 Rx levETIRAcetam [Keppra TAB] 500 mg PO BID #60 tablet 04/17/18 07/03/18 07/03/18 Rx medroxyPROGESTERone ACETATE 10 mg PO QDAY #14 tablet 04/17/18 07/03/18 Unknown Rx [Provera] oxyCODONE /ACETAMINOPHEN [Percocet 1 tab PO Q6H PRN #10 tablet 04/17/18 Unknown Rx 5/325 mg] Abacavir/Dolutegravir/Lamivudi 1 tab PO DAILY 07/03/18 07/03/18 Unknown History [Triumeq Tablet] Calcitriol [Rocaltrol] 0.25 mcg PO DAILY 07/03/18 07/03/18 Unknown History Calcium Acetate 2 tab PO TIDAC 07/03/18 07/03/18 Unknown History Carvedilol [Coreg] 25 mg PO BID 07/03/18 07/03/18 Unknown History Colace CAP 100 mg PO Q12HR 07/03/18 07/03/18 Unknown History Dapsone 100 mg PO 3XW 07/03/18 07/03/18 Unknown History Percocet 10/325 mg 2 tab PO Q6HR 07/03/18 07/03/18 Unknown History Procardia Xl 60 mg PO BID 07/03/18 07/03/18 07/03/18 History Reglan TAB 5 mg PO QACHS PRN 07/03/18 07/03/18 Unknown History diphenhydrAMINE 25 mg PO Q6HR PRN 07/03/18 07/03/18 Unknown History Active Meds: Active Medications Carvedilol (Coreg) 25 mg PO BID ZAIRE Last Admin: 07/04/18 12:40 Dose: 25 mg Docusate Sodium (Colace) 100 mg PO BID ZAIRE Last Admin: 07/04/18 10:28 Dose: 100 mg Hydralazine HCl (Apresoline) 50 mg PO Q8HR ZAIRE Last Admin: 07/04/18 14:29 Dose: 50 mg Hydralazine HCl (Apresoline) 10 mg IV Q6H PRN PRN Reason: SBP > 160 Last Admin: 07/04/18 11:36 Dose: 10 mg Hydromorphone HCl (Dilaudid) 1 mg IV Q4H PRN PRN Reason: Pain , Severe (7-10) Last Admin: 07/04/18 15:20 Dose: 1 mg Nicardipine HCl 50 mg/ Sodium (Chloride) 250 mls @ 25 mls/hr IV TITR ZAIRE; Protocol Last Titration: 07/04/18 14:26 Dose: 15 mg/hr, 75 mls/hr Sodium Chloride (Nacl 0.9%) 100 mls @ 999 mls/hr IV SHARON PRN PRN Reason: Hypotension Levofloxacin/Dextrose (Levaquin 250mg/50ml) 250 mg in 50 mls @ 50 mls/hr IV Q48H [facility]; Protocol Last Admin: 07/03/18 11:44 Dose: 50 mls/hr Labetalol HCl 200 mg/ Dextrose 200 mls @ 120 mls/hr IV TITR [facility]; Protocol Last Admin: 07/04/18 15:37 Dose: 2 mg/min, 120 mls/hr Lactulose (Cephulac) 20 gm PO QDAY [facility] Last Admin: 07/04/18 10:29 Dose: 20 gm Levetiracetam (Keppra) 500 mg PO BID [facility] Last Admin: 07/04/18 10:28 Dose: 500 mg Losartan Potassium (Cozaar) 100 mg PO QDAY [facility] Last Admin: 07/04/18 10:28 Dose: 100 mg Metoclopramide HCl (Reglan) 10 mg IV Q8H PRN PRN Reason: Nausea And Vomiting Nifedipine (Procardia Xl) 60 mg PO BID [facility] Ondansetron HCl (Zofran) 4 mg IV Q4H PRN PRN Reason: N/V unrelieved by Reglan Last Admin: 07/04/18 11:36 Dose: 4 mg Oxycodone HCl (Roxicodone) 5 mg PO Q4H PRN PRN Reason: Pain, Moderate (4-6) Oxycodone/Acetaminophen (Percocet 5/325) 1 tab PO Q4H PRN PRN Reason: Pain, Moderate (4-6) Last Admin: 07/04/18 11:35 Dose: 1 tab Senna (Senokot) 17.2 mg PO QHS [facility] Last Admin: 07/03/18 22:01 Dose: 17.2 mg Review of Systems All systems: negative Exam - Constitutional Vitals: Temp Pulse Resp BP Pulse Ox 97.5 F L 86 8 L 134/65 96 07/04/18 12:00 07/04/18 15:37 07/04/18 15:00 07/04/18 15:37 07/04/18 15:00 General appearance: Present: no acute distress - EENT Eyes: Present: EOM intact ENT: hearing intact - Neck Neck: Present: supple - Respiratory Respiratory effort: normal - Extremities Extremities: no ischemia, normal temperature - Abdominal General gastrointestinal: Present: soft (tender around the peritoneal catheter insertion site, but otherwise without diffuse tenderness) - Psychiatric Psychiatric: appropriate mood/affect, intact judgment & insight, cooperative - Neurologic Neurologic: no focal deficits Results - Labs CBC & Chem 7: 07/04/18 05:42 07/04/18 05:42 Labs: Abnormal lab results 07/04/18 07/04/18 Range/Units 05:42 05:42 RBC 3.07 L (3.65-5.03) M/mm3 MCV 100 H (79-97) fl MCH 33 H (28-32) pg RDW 21.3 H (13.2-15.2) % Plt Count 115 L (140-440) K/mm3 Chloride 97.6 L (98-107) mmol/L Creatinine 5.2 H D (0.7-1.2) mg/dL Assessment and Plan This patient presented with abdominal pain. She has end-stage renal disease and was recently converted from hemodialysis to peritoneal dialysis. The peritoneal catheter was placed approximately 3 weeks ago, and she was scheduled to follow-up with her vascular surgeon as an outpatient today. Following admission she was noted have an aortic dissection originating distal to the left subclavian artery. I agree with transfer of the patient to [facility] for further evaluation evaluation. Recommend aggressive heart rate and blood pressure control (heart rate less than 60 and systolic blood pressure less than 120). Discussed with the electronic development technician. - Patient Problems (1) Aortic dissection distal to left subclavian Current Visit: Yes Status: Acute (2) Abdominal pain Current Visit: Yes Status: Acute (3) End stage renal disease Current Visit: Yes Status: Chronic
[2018-07-04 16:49] VITALS: BP 118/63
== END 2018-07-04 17:00 | disposition short-term general hospital (02) | DRG 299 ==
LOC: ED 04:30 → CC1 09:04
PROVIDERS: ADMIT Internal Medicine; ATTEND Internal Medicine
PROC: 5A1D70Z Performance of Urinary Filtration, Intermittent, Less than 6 Hours Per Day (ICD-10-PCS; principal; 2018-07-02)
PROC: 5A1D70Z Performance of Urinary Filtration, Intermittent, Less than 6 Hours Per Day (ICD-10-PCS; 2018-07-03)
DX: I71.02 Dissection of abdominal aorta (principal); K65.9 Peritonitis, unspecified; N18.6 End stage renal disease; B20 Human immunodeficiency virus [HIV] disease; I77.74 Dissection of vertebral artery; K85.90 Acute pancreatitis without necrosis or infection, unspecified; I12.0 Hypertensive chronic kidney disease with stage 5 chronic kidney disease or end stage renal disease; I16.1 Hypertensive emergency; E87.70 Fluid overload, unspecified; I71.4 Abdominal aortic aneurysm, without rupture; G89.29 Other chronic pain; G40.909 Epilepsy, unspecified, not intractable, without status epilepticus; K59.00 Constipation, unspecified; D69.6 Thrombocytopenia, unspecified; D63.1 Anemia in chronic kidney disease; Z99.2 Dependence on renal dialysis; Z79.899 Other long term (current) drug therapy; Z71.51 Drug abuse counseling and surveillance of drug abuser
CPT/HCPCS: 36415; 71045; 71275; 74174; 74176; 76700; 80048; 80053; 83690; 84484; 85007; 85025; 85027; 87116; 89051; 93005; 93010; 94760; 96374; 96375; 96376; J0360; J1170; J1956; J2270; J2405; J2765; J3010; J7030; J7040; J7050; Q9967